=== PATIENT | male | born 1940 | race Caucasian/White ===

== ENCOUNTER → 2025-03-02 07:49 | Outpatient (REF) | payer OTHER, SELFPAY | LOC: RCS 07:49 | PROVIDERS: ATTENDING PHYSICIAN Student in an Organized Health Care Education/Training Program; FAMILY PHYSICIAN Internal Medicine | DX: I35.0 Nonrheumatic aortic (valve) stenosis (principal) | CPT/HCPCS: 74174; 75572; 93306; Q9967 ==

== ENCOUNTER 2025-05-14 07:21 | Inpatient (IN) | payer OTHER, SELFPAY ==
[2025-05-05 09:25] VITALS: BMI 31.9
[2025-05-05 10:14] LABS: Urine Character Clear (Clear)
[2025-05-05 10:14] LABS: Hematocrit 50.2 % (39.0-52.0); Hemoglobin 17.2 g/dL (13.0-18.0); Mean Corp Hgb Conc. 34.3 g/dL (33.0-37.0); Mean Corpuscular Volume 87.3 fL (80.0-94.0); Nucleated Red Blood Cells % 0 % (-); Platelet Count 143 10^3/uL (130-400); Red Cell Dist. Width 14.2 % (11.5-14.5)
[2025-05-05 10:25] LABS: INR 1.02; PT 13.7 Sec (11.4-14.6)
[2025-05-05 10:33] LABS: ALT (SGPT) 43 U/L (0-50); AST (SGOT) 36 U/L (17-59); Albumin 4.7 g/dl (3.5-5.0); Alkaline Phosphatase 60 U/L (38-126); Blood Urea Nitrogen 11 mg/dl (9-20); Calcium 9.3 mg/dl (8.4-10.2); Carbon Dioxide 28 mmol/L (22-30); Chloride 104 mmol/L (98-107); Estimated Creatinine Clearance 51 ml/min; Glucose 99 mg/dl (70-99); Potassium 4.9 mmol/L (3.5-5.1); Sodium 140 mmol/L (135-145); Total Protein 7.5 g/dl (6.3-8.2); eGFR > 60.00
--- NOTE | 2025-05-05 10:52 | CM ---
Chart reviewed. Met with the patient and his in [facility]. Reviewed preoperative and postoperative instructions and restrictions, along with showering guidelines. Gave patient 2 soaps and TAVR Book. Patient is outside the driving radius of [place]
Transitional RN, so he will either need VN or a follow up phone call. Patient is independent of ADLS, lives with his in a [facility], total of 8 MELANI, 0 DME. Patient is staying at the [facility] in [place] the night before and will stay until
Sunday, May 16. Plan is for the patient to return home with VN or follow up phone call.
[2025-05-05 10:53] LABS: Glycohemoglobin (HgbA1c) 5.7 % (4.0-5.6)
--- NOTE | 2025-05-05 14:13 | HPS.HSE ---
Family Physician
-
Family Physician: Cr Luo
Cardiology: Dr. Boateng
Chief Complaint
-
Pre-operative history and physical
History of Present Illness
Mr. Fishman is a very pleasant 84 yo gentleman with a past medical history significant for aortic stenosis, HLD, CAD, HTN, RBBB, and MT. His most recent echocardiogram from 03/02/2025 is notable for EF 55-60%, aortic valve P/ M 51/29, SUSAN 0.7, Pk
joselito. 3.57, mild AI, MAC, mild MS, trace MR, trace TR. Cardiac catheterization from 01/02/2025 demonstrated moderate non-obstructive CAD with an invasive MG of 30. From a symptomatology standpoint, patient describes LILLY. Reviewed the pathophysiolgy and
treatment options of including SAVR and TAVR. Reviewed the risks of the procedure including Stroke, ppm, and vascular injury. Reviewed patient with the heart team on 04/03/2025 and the team agreed to proceed with TF TAVR utilizing a 26mm S3.
Medical History
Past Medical History
Past Medical History: Reports CAD, GERD, HTN and Hypercholesterolemia
Additional Past Medical History:
Elevated liver enzymes, RBBB (right bundle branch block),R inguinal hernia, SAVOONGA (no aides), Cataracts, s/p sx, Skin cancer on head, s/p removal
Past Surgical History: Reports Other (PCI RCA, hernia repair, Right THR, Mohs-forehead)
Social History
Tobacco: Former Smoker
Alcohol: Occasional
Drug: None
Personal:
Living: With Family
Family History
Family History: CAD (Father had MT in 50s)
Allergies / Home Medications
Allergies reflects when Allergies were last updated in [employer].
Home Medications with original date entered in [employer]
Allergy/Medication List:
Allergies:
NKDA
Medications:
Aspirin 81(Aspirin) 81 MG Tablet Chewable 1 tablet Orally Once a day
Crestor(Rosuvastatin Calcium) 5 MG Tablet 1 tablet Orally Once a day
Icosapent Ethyl 1 GM Capsule 1 capsule Orally Twice a day
Losartan Potassium 25 MG Tablet 1 tablet Orally Once a day
Metoprolol Tartrate 50 MG Tablet 1 tablet with food Orally Twice a day
Multivitamin Adults(Multiple Vitamins-Minerals) - Tablet as directed Orally
Pantoprazole Sodium 40 MG Tablet Delayed Release 1 tablet Orally Once a day
Review of Systems
-
History Source: Patient
Constitutional: Reports No Symptoms
EENT: Reports No Symptoms
Respiratory: Reports Other (LILLY)
Cardiac: Reports Other (LILLY); Denies Palpitations or Syncope
Abdomen/GI: Reports No Symptoms; Denies Abdominal Pain, Nausea or Vomiting
: Reports No Symptoms; Denies Dysuria or Frequency
Musculoskeletal: Reports No Symptoms; Denies Edema
Skin: Reports No Symptoms
Neurological: Reports No Symptoms; Denies Dizzy, Headache or Weakness
Endocrine: Reports No Symptoms
Hematologic/Lymphatic: Reports No Symptoms
Psych: Reports No Symptoms and Calm
Physical Exam
Physical Exam
General: Well Developed, Well Nourished and No Apparent Distress
HEENT: NormoCephalic, Moist mucous membranes and PERRLA
Respiratory: Clear and Non Labored Respirations; No Wheezes, Rales or Rhonchi
Cardiac: S1/S2, Regular Rhythm and Murmur (Grade II/ DALLIN); No Peripheral Edema
Breast: Deferred by me
GI: Soft, Non Tender, Non Distended and Normal Bowel Sounds
Rectal: Deferred by Provider
Genito-urinary: Deferred by me
Musculoskeletal: No Edema
Skin: Warm and Dry
Neuro: AO x 3, No Motor Deficits and Nonfocal/grossly intact
Psych: Calm and Intact Judgment/Insight
Laboratory Results
-
05/05/25 09:34
05/05/25 09:34
Laboratory Results
PT 13.7 Sec (11.4-14.6) 05/05/25 09:34
INR 1.02 05/05/25 09:34
Total Bilirubin 1.4 mg/dl (0.2-1.3) H 05/05/25 09:34
AST 36 U/L (17-59) 05/05/25 09:34
ALT 43 U/L (0-50) 05/05/25 09:34
Alkaline Phosphatase 60 U/L (38-126) 05/05/25 09:34
Data Reviewed
-
Diagnostic Radiology: Report Reviewed by me
CT Scan: Report Reviewed by me and Discussed with Physician
Medical Tests (Nuc Med, Echo, EKG etc): Report Reviewed by me (EKG-RBBB)
Lab Data: Labs Reviewed by me
Old Records: Reviewed (Consult notes)
Impression/Plan
-
IMPRESSION:
Severe, Symptomatic aortic stenosis
PLAN:
-TF-TAVR utilizing a 26mm S3 valve via transfemoral access
-Continue aspirin 81mg daily
-Cardiac rehab consult
-POD #1/#30 echocardiogram
[2025-05-14] VITALS (28 sets, daily range): BP systolic 85–143; BP diastolic 56–93; BMI 31.4
--- NOTE | 2025-05-14 08:54 | W.CVOR.SURPR ---
CVOR Surgeon Immed Pre Op
-
I have examined this patient prior to performance of the scheduled procedure.
The patient's condition is unchanged from the time of the dictated/written History and
Physical and the patient is able to undergo the scheduled procedure.
[2025-05-14] MEDS: ANCEF 10 IV (09:28)
[2025-05-14 11:04] LABS: ACT-LR - POC 392 Seconds (116-155)
--- NOTE | 2025-05-14 11:19 | W.IMMPOSTOP ---
Surgical Immed Post Op Note
-
[id number]
STRUCTURAL HEART PROCEDURE NOTE: TAVR
Preoperative Dx:
Moderate to severe aortic stenosis with peak/mean gradients of 51/29, calculated SUSAN 0.7, peak velocity 3.57. Mild associated aortic insufficiency.
CAD status post prior PCI/stenting to his RCA
Prior myocardial infarction
RBBB
Hypertension
Hyperlipidemia
GERD
Cataracts status post surgery
Skin cancer on head status post Mohs
Right hip replacement
Hard of hearing
Hernia repair
Postoperative Dx:
Same
Procedures:
1) Left CFV access with ultrasound and fluoroscopic guidance, Seldinger technique,, long 6 [place] sheath placement
2) Left USED CAR LOT PORTER access with tactile, ultrasound, and fluoroscopic guidance, Seldinger technique, micropuncture sheath placement, limited angiography, long 6 [place] sheath placement
3) Placement of temporary RV pacing wire with threshold testing
4) Placement of pigtail catheter in the RCC with limited aortography and confirmation of coplanar valve deployment angles, minor adjustments
5) Right USED CAR LOT PORTER access with tactile, ultrasound, and fluoroscopic guidance, Seldinger technique, micropuncture sheath placement, limited angiography, 8 [place] dilator placement
6) Perclose placement x 2, 8 [place] sheath placement (first Perclose attempted failed and was not deployed)
7) Extra-stiff wire placement through right iliofemoral system
8) Placement of Bonds E sheath via R USED CAR LOT PORTER (systemic heparinization)
9) Wire purchase across stenotic aortic valve (AL-1, soft-tipped straight, LVEDP assessment (not significantly elevated, 22 mmHg), extra-stiff wire with curve proximal end)
10) Right transfemoral TAVR with placement of 26 mm ROSY 3 Resilia valve
11) Completion aortography
12) Completion transthoracic echocardiographic assessment (mean gradient 4 mmHg, no AI or PVL)
13) Removal of valve delivery system and Bonds E-sheath from right USED CAR LOT PORTER, management with Perclose sutures x 2; manual pressure
14) Completion right iliofemoral angiography
15) Removal of temporary pacing wire
16) Removal of left USED CAR LOT PORTER 6 [place] sheath with management with 6 [place] Angio-Seal; manual pressure
17) Removal of left CFV 6 [place] sheath with management with manual pressure
Employment Educational Coord:
Dr. Ciro Kumar
Cardiac Surgeon:
Dr. Alin Maldonado
Anesthesia:
MAC & local to B/L groins
Implants:
Bonds [employer], ROSY 3, 26mm, RESILIA valve; SN: [id number]
Perclose sutures x 2 (R USED CAR LOT PORTER)
6Fr angioseal x 1 (L USED CAR LOT PORTER)
Cath Data:
Start: 1009hrs, Deploy: 1055hrs, End: 1112hrs
FT: 9.6min, mGy: 266, DAP: 26.1, Contrast: 120
Post-TTE: mean gradient 4mmHg, no AI/PVL
Complications:
No significant complications, patient with blood pressure variability including hypertension and very mild hypotension while under MAC anesthesia
Condition:
Stable/guarded to recovery
--- NOTE | 2025-05-14 11:25 | ITS.CL.PN ---
P[facility] - Procedure Note
Procedure
Procedure Note:
TRANSCATHETER AORTIC VALVE REPLACEMENT REPORT
Date of Procedure: 05/14/2025
Referring: Pilar Smart NP
Indication: symptomatic severe aortic valve stenosis
Operators: Ciro Kumar MD, PhD (interventional cardiology); Dr. Alin Maldonado MD (CT surgery)
Anesthesia: conscious sedation provided by the anesthesia staff
PROCEDURE: transfemoral, transcatheter aortic valve replacement with an Bonds Nadeem 3 Ultra RESILIA 26 mm transcatheter aortic valve
ACCESS:
1. 6F left femoral vein (closure: manual hemostasis) - Ultrasound was utilized for vascular access. The vessel was visualized under ultrasound and noted to be patent. An image of the vessel was stored permanently in the patient's medical record.
Under direct ultrasound guidance, vascular access was obtained using a modified Seldinger technique and a 6 [place] sheath was placed.
2. 6F left common femoral artery (closure: Angioseal) - Ultrasound was utilized for vascular access. The vessel was visualized under ultrasound and noted to be patent. An image of the vessel was stored permanently in the patient's medical record.
Under direct ultrasound guidance, vascular access was obtained using a modified Seldinger technique and a 6 [place] sheath was placed.
3. 14 F right common femoral artery (closure: Perclose x2) - Ultrasound was utilized for vascular access. The vessel was visualized under ultrasound and noted to be patent. An image of the vessel was stored permanently in the patient's medical
record. Under direct ultrasound guidance, vascular access was obtained using a modified Seldinger technique and a 8 [place] sheath was placed.
HEMODYNAMIC DATA
LVEDP 22 mmHg
PROCEDURE NARRATIVE:
The patient was prepped and draped in standard sterile fashion. Conscious sedation was provided by the anesthesia staff. 6F left femoral vein and left common femoral artery access was obtained with ultrasound guidance using micropuncture technique
with verification of appropriate arteriotomy location via hand injection angiography. A temporary venous pacing wire was advanced via the left femoral vein to the right ventricle under fluoroscopic guidance with appropriate capture verified. A 5F
pigtail catheter was advanced via the left common femoral artery and seated in the right coronary cusp. Angiography was performed to verify the co-planar angle.
8F right common femoral artery access was obtained with ultrasound guidance using micropuncture technique with verification of appropriate arteriotomy location via hand injection angiography. The arteriotomy was preclosed with two Perclose sutures
followed by replacement of the 8F sheath. Using an AL1 catheter, an Amplatz Extrastiff wire was placed in the descending thoracic aorta. The 8F sheath was removed and the 14 F Bonds E-sheath was inserted over the Extrastiff wire and into the
descending aorta. Heparin was given. The AL1 catheter was re-advanced through the E-sheath to the level of the ascending aorta. The Extrastiff wire was exchanged for a soft tipped straight wire which was used to cross the aortic valve and deposit
the AL1 in the LV apex. A J-wire was used to exchange the AL1 for a pigtail catheter in the LV and LVEDP was measured. An Amplatz Extrastiff wire with curved proximal end was advanced through the pigtail catheter and seated in the LV apex. ACT was
checked and confirmed to be >300 seconds.
The valve was brought to the table with orientation and deployment contrast volume verified. The valve was advanced over the Extrastiff wire and into the descending aorta. The balloon was withdrawn, and the valve was mounted on the balloon. The
valve was advanced over the aortic arch and into the aortic valve annulus. The pusher device was withdrawn. Low volume aortography confirmed valve positioning. The valve was deployed during rapid ventricular pacing. The balloon was walked back to
the descending aorta while leaving the wire in place. The patient was resuscitated by anesthesia with recovery of adequate blood pressure. Telemetry demonstrating sinus rhythm. Aortography demonstrated good valve positioning, adequate coronary
filling, and no aortic valve insufficiency. Echocardiography confirmed no aortic insufficiency. Mean valve gradient was 4 mmHg. The valve deployment system was removed.
The Bonds E sheath was removed, and hemostasis obtained with the two Perclose sutures. Protamine 30 mg was given. Aortoiliac angiography demonstrated no evidence of iliofemoral dissection/perforation and good runoff below the common femoral artery
bilaterally. The pacemaker and the pigtail catheter were removed. The left femoral artery sheath was removed using a 6F Angioseal. The left femoral venous sheath was removed with manual pressure.
RADIATION: dose 266 mGy; DAP 26.1 Gy*cm2; fluoroscopy time 9.6 min
CONCLUSION: successful placement of an Bonds Nadeem 3 Ultra RESILIA 26 mm transcatheter aortic valve via right transfemoral approach with no acute complications
Copy to: Pilar Smart NP; Jadon Ramirez MD; Robbin Pierre MD (food and beverage checker); Cr Luo MD (PCP)
Signed: Ciro Kumar MD, PhD
[2025-05-14] MEDS: ANCEF IV (12:26)
--- NOTE | 2025-05-14 12:55 | PTCARENOTE ---
Patient received from the lab specialist. AO x3. NSR hr 80's. B/L femoral sites CDI, Doppler pulses b/l. Left DP weaker than the right. Petechiae rash on lower legs and anterior feet, skin warm to touch, VSS, call garcia in reach
--- NOTE | 2025-05-14 13:20 | CM ---
Reviewed chart. Mr. Fishman is in the operating room today. Prior to admission he resides his spouse in a two story home with eight steps to enter. Prior to admission he was independent with ambulation and adls. He is out of the catchment area for
the Transitional Care Nurse. May need VNA Services. Medical work-up in progress. The discharge plan is to return home with his spouse and VNA Services when medically stable.
[2025-05-14] MEDS: ANCEF 5 IV (16:38)
--- NOTE | 2025-05-14 17:32 | PTCARENOTE ---
Patient out of bed in chair, assisted to the bathroom to void. Call garcia in reach
[2025-05-14] MEDS: PROTONIX 40 MG PO (18:00)
[2025-05-14] MEDS: COZAAR 25 MG PO (18:00)
[2025-05-14] MEDS: CRESTOR 5 MG PO (21:06)
[2025-05-14] MEDS: ASPIR LOW (ENTERIC COATED) 81 MG PO (21:06)
--- NOTE | 2025-05-14 22:17 | PTCARENOTE ---
Patient received at change of shift out of bed to the chair. Bilateral groin punctures with gauze and tegaderm C/D/I. Bilateral pedal pulses obtainable with doppler, left weaker than right. The patient denies pain, denies feeling lightheaded or
dizzy. The patient states he feels well and is ready to be home. Sinus rhythm on telemetry. Oxygen saturation 93-94% on room air. Plan of care discussed. Call garcia within reach. Care ongoing.
[2025-05-15 03:31] VITALS: BP 124/70
[2025-05-15 03:41] VITALS: BMI 31.9
[2025-05-15 04:47] LABS: Blood Urea Nitrogen 15 mg/dl (9-20); Calcium 8.8 mg/dl (8.4-10.2); Carbon Dioxide 21 mmol/L (22-30); Chloride 107 mmol/L (98-107); Estimated Creatinine Clearance 64 ml/min; Glucose 129 mg/dl (70-99); Potassium 4.3 mmol/L (3.5-5.1); Sodium 136 mmol/L (135-145); eGFR > 60.00
[2025-05-15 04:52] LABS: Hematocrit 45.0 % (39.0-52.0); Hemoglobin 15.5 g/dL (13.0-18.0); Mean Corp Hgb Conc. 34.4 g/dL (33.0-37.0); Mean Corpuscular Volume 85.7 fL (80.0-94.0); Platelet Count 114 10^3/uL (130-400); Red Cell Dist. Width 14.3 % (11.5-14.5)
[2025-05-15] MEDS: COZAAR 25 MG PO (08:03)
[2025-05-15 08:06] VITALS: BP 139/73
--- NOTE | 2025-05-15 08:14 | W.PN.CT ---
Today's Communication / Plan
-
-pod #1
-no issues overnight
-nsr overnight. No jenny or pause. Episode on tele at 1:13 am is likely artifact
-Echo today
-possible d/c
Assessment / Plan
-
- Severe symptomatic - s/p Right transfemoral TAVR with placement of 26 mm ROSY 3 Resilia valve on 05/14/25, pod #1
- Post-TTE: mean gradient 4mmHg, no AI/PVL
- CAD status post prior PCI/stenting to his RCA
- Prior myocardial infarction
- RBBB
- Hypertension
- Hyperlipidemia
- GERD
- Cataracts status post surgery
- Skin cancer on head status post Mohs
- Right hip replacement
- Hard of hearing
- Hernia repair
Discussed patient care with: Nursing and Care Team
Subjective
-
Date of Service: May 15, 2025
Objective Data
-
Lab Results
05/15/25 03:40
05/15/25 03:40
PT 13.7 Sec (11.4-14.6) 05/05/25 09:34
INR 1.02 05/05/25 09:34
Vital Signs
Vital Signs
Temp Pulse Resp BP Pulse Ox
98.5 F 91 20 139/73 96
05/15/25 08:06 05/15/25 08:06 05/15/25 08:06 05/15/25 08:06 05/15/25 08:06
CT Intake/Output/Weight
05/14/25 05/15/25 05/15/25
18:59 06:59 18:59
Intake Total 2079 / 0
Output Total 650 / 750 100 / 750
Balance 1430 / 1330 -100 / 1330
SaO2: 96
Physical Exam
-
General: Awake and AOx3
Cardiovascular: Regular rate & rhythm, No Murmurs and No Rub
Respiratory: Clear
Incision: Clean, Dry and Intact (soft, nontender, no hematoma b/l)
Extremities: No Edema
Data Reviewed
-
Lab Results: Results Reviewed
Medications: Active Meds Reviewed
Chest X-Ray: Report Reviewed and Image Reviewed
ECG: Report Reviewed and Image Reviewed
[2025-05-15] MEDS: LOPRESSOR 50 MG PO (09:45)
[2025-05-15 09:47] VITALS: BP 122/66
--- NOTE | 2025-05-15 09:53 | W.DCSUMMARY ---
Addendum entered and electronically signed by Soni Quintanilla PA-C 05/18/25 12:37:
Error in hospital course. Pt did not receive IV lasix. LVEDP measured in microbiology lab technician was 22mmHg.
Original Note:
Discharge Summary
Discharge Data
Date of Admission: 05/14/25
Date of Discharge: 05/15/25
-
Pending Results: No
Hospital Course
Primary care physician: Cr Luo
Outpatient csr: Connor Boateng
Inpatient consultants: ERICA
Procedures:
1. 05/14/25 Right transfemoral TAVR with placement of 26 mm ROSY 3 Resilia valve by Drs. Maldonado & José
Primary Diagnosis:
1. severe aortic stenosis
Secondary Diagnoses:
1. coronary artery disease s/p PCI/stenting to his RCA
2. hx [place]
3. chronic RBBB
4. hypertension
5. hyperlipidemia
6. GERD
7. hx cataract surgery
8. hx skin cancer s/p MOHS
9. osteoarthritis s/p right SUZANNA
10. hard of hearing
11. hx hernia repair
HPI: Patient is an 84-year-old male with known progressive aortic stenosis, most recent echo demonstrated preserved ejection fraction with a peak and mean gradients of 51/29mmhg. Cardiac cath demonstrated nonobstructive coronary disease and he was
therefore referred for TAVR. After all preoperative workup was completed he was deemed a suitable candidate undergo the procedure.
Hospital course: Patient was brought in electively on 05/14/2025 where he underwent an uncomplicated right transfemoral TAVR with a 26 mm ROSY 3 Resilia by Drs. Maldonado and Roque. He was transferred to recovery without any vasoactive drips, postop
EKG demonstrated normal sinus rhythm with chronic right bundle branch block and left anterior fascicular block. He was given IV Lasix for acute on chronic heart failure with elevated LVEDP. He remained stable overnight on postop day 1 patient's
EKG remained unchanged. Groin sites are stable, he is ambulatory. Home beta-melani was resumed and tolerated well. Follow-up echo demonstrated well-seated TAVR with no significant regurgitation, mean gradient of 9 mmHg. Patient was placed on a
rhythm star monitor to be worn for the next 2 weeks to monitor his rhythm. He is discharged to home in the care of his family with VN from [facility].
Home medication changes: none, resume all home meds.
Discharge Plan
-
Patient Disposition: Home (Routine Discharge)
Discharge Diagnosis/Procedures: TF TAVR (05/14/25)
Condition: Good
Diet: Low Cholesterol and 2 Gram Sodium
Activity: As tolerated
Driving Restrictions: No driving for 1 week
Bathing Restrictions: OK to Shower
Others Tests: 30 Day Follow Up Echocardiogram: 06/16/2025 at 12:40pm at Dr. Boateng's office
Other Services: Cardiac Rehab
Wound Care: Please do not use powders, creams or lotions in your groin areas. Monitor for increased pain, swelling, redness or drainage. Please notify your doctor if any occur.
Specialty Instructions: Weigh Daily- Call MD for wt gain/loss 3 lbs overnight/5 lbs in 1 week
Activity Restrictions/Additional Instructions:
Please call [facility] to schedule appointment. [phone]
Referrals:
[facility] [Outside] - in one to two days
Cr Luo MD [Family Provider] - in four to six weeks
Referral Note: Please make an appointment in four to six weeks.
Sandip Pierre MD [Active, Cardiology] - 06/18/25 9:40 am
Prescriptions:
New
acetaminophen 325 mg Tablet
650 mg PO Q6HPRN PRN (Reason: HORNER, mild pain, or fever >101F) Qty: 0 0RF
Continued
multivitamin Tablet
1 tab PO DAILY
aspirin 81 mg Tablet,Delayed Release (Dr/Ec)
81 mg PO HS
pantoprazole 40 mg Tablet,Delayed Release (Dr/Ec)
40 mg PO QPM
losartan 25 mg Tablet
25 mg PO DAILY
metoprolol tartrate 50 mg Tablet
50 mg PO BID
rosuvastatin 5 mg Tablet
5 mg PO HS
icosapent ethyl 1 gram Capsule
1 g PO BID
Discharge Orders:
Discharge Patient (As Directed); Ordered 05/15/25
Ordered By: Soni Quintanilla
Care Plan Goals
Care Plan Goals:
Problem: Readiness for enhanced knowledge related to diagnosis and treatment plan
Goal: Understand your diagnosis and treatment plan needs, including medications if applicable.
Instructions: Know your diagnosis, underlying causes and treatment plan options, including medications if applicable. Consult with your health care team to learn about your diagnosis and treatment plan, including medications if applicable.
Discharge Date and Time
Print Language: FINNISH
--- NOTE | 2025-05-15 09:54 | CM ---
Reviewed chart. Met with Mr. Fishman to review discharge plans. He states he feels well and maybe able to go home soon. He states prior to admission he resides with his spouse in a two story home with seven steps to enter. He states he has a full
flight of steps to get to bedroom/full bathroom. He states he has a powder room in the basement. He states prior to admission he was independent with ambulation and adls. He states he does not have ant DME in the home. He states he has a
prescription plan with [facility]. He states his spouse will be home to assist in his care if needed. We reviewed VNA Services since he is out of the catchment area for the Transitional Care Nurse. He is agreeable to [facility].
Telephone call to [facility] to make the referral. Sent referral. Medical work-up in progress. The discharge plan is to return home with his spouse [facility] when medically stable.
--- NOTE | 2025-05-15 10:36 | PTCARENOTE ---
Assumed care at 0700. Patient AO x3. NSR HR 80's, trace lower extremity edema, petechia rash lowers legs and anterior feet. Doppler pulses, feet warm to touch. B/L femoral sites soft, dressing dry and intact. Mildly short of breath with activity,
occasional audible wheeze, POX 97%. Walking in room, gait is steady. Call garcia in reach
[2025-05-15 10:52] VITALS: BP 142/80; BP 144/77; PULSE 76; O2SAT 96; O2SAT 97
[2025-05-15 11:02] VITALS: BP 142/80
[2025-05-15 11:06] VITALS: BP 144/77
--- NOTE | 2025-05-15 13:24 | PTCARENOTE ---
Patient discharged to home. Teaching provided, patient verbalized understanding. IV and Telemetry removed. Rythymn star monitor placed on patient
--- NOTE | 2025-05-15 20:21 | W.PN.CD ---
Today's Communication / Plan
-
discharge
Impression / Plan
-
84M with severe symptomatic aortic valve stenosis POD1 s/p TF TAVR with Bonds S3UR 26 mm valve.
Overnight did well
Feels well with ambulation
Groin soft
VSS
Tele with possible brief pause, will send with 2 week monitor given high risk for heart block with underlying RBBB
EKG stable RBBB
Labs stable
Echo with stable valve function, gradient:
1. Normal biventricular size and function without regional wall motion abnormalities.
2. LVEF is 61% by Decker's biplane method of discs. Mild concentric LVH.
3. S/p 26 mm Bonds ROSY TAVR valve. Mean gradient 9 mmHg. No significant regurgitation.
4. Mild mitral stenosis mean gradient 5 mmHg.
5. Normal estimated PASP at 28 mmHg.
6. Compared to prior from March 02, 2025, status post TAVR valve.
Plan:
discharge per protocol on ASA daily
1 month follow up echo
cardiology follow up
Physical Exam
Vital Signs/Labs
Vital Signs
Temp Pulse Resp BP Pulse Ox
36.9 C 68 18 144/77 94
05/15/25 11:47 05/15/25 12:00 05/15/25 11:47 05/15/25 11:06 05/15/25 11:47
05/14/25 05/15/25 05/16/25
06:59 06:59 06:59
Actual Weight 82.8 kg
05/15/25 03:40
05/15/25 03:40
PT 13.7 Sec (11.4-14.6) 05/05/25 09:34
INR 1.02 05/05/25 09:34
05/05/25
09:34
[id number] Pept 698
Physical Exam
Constitutional: Comfortable
Cardiovascular: Rhythm & rate is regular
Respiratory: Respiratory effort normal
Neuro/Psych: AO x 3
Data Reviewed
-
Date of Service: May 15, 2025
Medical Decision Making: Reviewed Test Results
EKG: Tracing Personally Visualized and interpreted
Medical Tests (PFT, Pathology etc): Image Personally Visualized and interpreted
Labs: Labs Ordered by me
--- NOTE | 2025-05-18 09:28 | PN.CDI ---
CDI
- -
CDI:
Physician Documentation Request
Admit Date: 05/14/25 07:21
Dear Doctor Joel,
Please review the following and provide your response in the progress notes.
Clinical Indicators:
The Discharge Summary states the patient was given IV Lasix for acute on chronic heart failure with elevated LVEDP.
Please provide further specificity regarding the most likely type of CHF you are evaluating, treating or monitoring.
Type:
Systolic
Diastolic
Combined Systolic/Diastolic
Other
Unable to Determine
Use of terms such as suspected, likely, concern for, or probable (associated with a specific diagnosis that is being evaluated, monitored, or treated as if it exists) are acceptable and can be coded in the inpatient setting, when documented at the
time of discharge.
Thank you,
Leslie Swain
Chisel Worker
Please use your independent medical judgment in providing your response.
== END 2025-05-15 14:17 | disposition home health service (06) | DRG 267 ==
LOC: IVU 07:21
PROVIDERS: Physician Assistant Medical; ADMITTING PHYSICIAN Thoracic Surgery (Cardiothoracic Vascular Surgery); CONSULT PHYSICIAN Student in an Organized Health Care Education/Training Program; FAMILY PHYSICIAN Internal Medicine
PROC: 02RF38Z Replacement of Aortic Valve with Zooplastic Tissue, Percutaneous Approach (ICD-10-PCS; 2025-05-14)
DX: I35.2 Nonrheumatic aortic (valve) stenosis with insufficiency (principal); I45.2 Bifascicular block; I25.10 Atherosclerotic heart disease of native coronary artery without angina pectoris; I10 Essential (primary) hypertension; E78.00 Pure hypercholesterolemia, unspecified; K21.9 Gastro-esophageal reflux disease without esophagitis; H91.90 Unspecified hearing loss, unspecified ear; I25.2 Old myocardial infarction; Z85.828 Personal history of other malignant neoplasm of skin
CPT/HCPCS: 33361; 36415; 71045; 71046; 80048; 80053; 81003; 82248; 83036; 83880; 85025; 85027; 85347; 85610; 86850; 86900; 86901; 87070; 93005; 93308; 93321; 93325; C1760; C1769; Q9967

== ENCOUNTER 2025-05-16 13:24 | Inpatient (IN) | payer OTHER, SELFPAY ==
[2025-05-16] VITALS (36 sets, daily range): BP systolic 117–163; BP diastolic 59–91; BMI 29.6
--- NOTE | 2025-05-16 13:06 | ED.GENMED ---
History of Present Illness
<Nusrat Burkett PA-C - Last Filed: 05/16/25 16:30>
General
Chief Complaint: Heart Rate Problem
Source: patient
Exam Limitations: none
Time Seen by Provider: 05/16/25 12:42
Nursing documentation reviewed up to this point in time: agreed with
History of Present Illness
History of Present Illness:
see MDM
Past History
<WARNER Jean Baptiste Last Filed: 05/16/25 16:30>
Past History
ED Past Medical History: CAD, GERD, HTN, Hypercholesterolemia and Other (aortic stenosis)
ED Past Surgical History: Cardiac and Orthopedic
Review of Systems
<WARNER Jean Baptiste Last Filed: 05/16/25 16:30>
Review of Systems
Allergies reviewed?: Yes
All Other Systems: Not applicable
Phy Exam
<WARNER Jean Baptiste Last Filed: 05/16/25 16:30>
Physical Exam
Physical Exam:
GENERAL: Alert , in no apparent distress
EYE: pupils equal and reactive
NECK: Supple
ENT: o/p clr, mmm.
CARDIAC: sinus, no edema;
LUNGS: Clear breath sounds bilaterally, no acute respiratory distress, no wheezes/rales/rhonchi
ABDOMEN: Soft, without focal tenderness, no r/g, no cvat, normal bowel sounds
NEUROLOGICAL: Alert and oriented, no focal neuro deficits
SKIN: Warm and dry, skin intact.some mil dpetechiae in the B/L lower extremities
MUSCULOSKELETAL: No edema, well perfused. neg keon's sign
PSYCH: Normal and appropriate interaction.
Course
<WARNER Jean Baptiste Last Filed: 05/16/25 16:30>
Orders/Labs/Results
Orders:
Orders
05/16/25 12:28
ECG [Electrocardiogram (*1)] Urgent
Reason for Study: Abnormal EKG
EKG- Treatment ONCE
05/16/25 13:04
Complete Blood Count/With Diff Urgent
Comprehensive Metabolic Panel Urgent
Magnesium Urgent
PTT Urgent
Prothrombin Time Urgent
TSH Urgent
Troponin I Urgent
05/16/25 13:14
Admit/Transfer Patient As Directed
Co-Sign Provider:
Level of Care: Inpatient admission
Assign to:: IVU
Physician / Group: eldon
Diagnosis: heart block
Reason for Hospitalization: heart block
Expected length of stay greater than two midnights?: Yes
ELOS- Estimated Length of Stay in days: 3
I certify the patient meets the requirements for IP care: Yes
05/16/25 13:15
Code Status As Directed
Resuscitation Status: Full Code
PRN Pain Medication Management As Directed
May give lesser potent ordered pain med per pt: Yes
preference::
Protocol:: Medication orders for pain may be administered in a
manner that supports deferring to patient preference
when the pt is:
- Requesting an ordered lesser potent pain medication.
Least to most potent pain medications are defined
as: acetaminophen < NSAID < tramadol < opioids
(morphine, oxycodone, hydromorphone).
- Requesting a lesser dose of the same medication IF
ORDERED.
- Requesting a less intrusive route of administration
if both routes are prescribed by the provider (PO <
IV).
Abnormal Lab Results
05/16/25
13:04
WBC 11.8 H 10^3/uL
(4.8-10.8)
RDW 14.6 H %
(11.5-14.5)
Plt Count 86 L D 10^3/uL
(130-400)
MPV 11.1 H fL
(7.4-10.4)
Abs Immat Gran (auto) 0.1 H 10^3/uL
(0-0.05)
Absolute Neuts (auto) 8.5 H 10^3/uL
(1.4-6.5)
Absolute Monos (auto) 1.3 H 10^3/uL
(0.1-0.6)
Lymphocytes % 13.8 L %
(20.5-51.1)
Monocytes % 11.2 H %
(1.7-9.3)
Total Bilirubin 1.6 H mg/dl
(0.2-1.3)
Troponin I 0.097 H* ng/ml
TSH 4.73 H uIU/ml
(0.47-4.68)
05/16/25 13:04
05/16/25 13:04
Vital Signs
Initial and Last Documented VS:
Initial Vital Signs
Temp Pulse Resp BP Pulse Ox
36.8 C 68 16 160/84 98
05/16/25 12:28 05/16/25 12:28 05/16/25 12:28 05/16/25 12:28 05/16/25 12:28
Last Documented Vital Signs
Temp Pulse Resp BP Pulse Ox
36.8 C 67 17 118/70 95
05/16/25 12:28 05/16/25 16:20 05/16/25 16:20 05/16/25 16:20 05/16/25 16:20
Yuridialt;Srini Umana DO - Last Filed: 05/16/25 13:07>
Orders/Labs/Results
Orders:
Orders
05/16/25 12:28
ECG [Electrocardiogram (*1)] Urgent
Reason for Study: Abnormal EKG
EKG- Treatment ONCE
05/16/25 13:04
Complete Blood Count/With Diff Urgent
Comprehensive Metabolic Panel Urgent
Magnesium Urgent
PTT Urgent
Prothrombin Time Urgent
TSH Urgent
Troponin I Urgent
05/16/25 13:14
Admit/Transfer Patient As Directed
Co-Sign Provider:
Level of Care: Inpatient admission
Assign to:: IVU
Physician / Group: eldon
Diagnosis: heart block
Reason for Hospitalization: heart block
Expected length of stay greater than two midnights?: Yes
ELOS- Estimated Length of Stay in days: 3
I certify the patient meets the requirements for IP care: Yes
05/16/25 13:15
Code Status As Directed
Resuscitation Status: Full Code
PRN Pain Medication Management As Directed
May give lesser potent ordered pain med per pt: Yes
preference::
Protocol:: Medication orders for pain may be administered in a
manner that supports deferring to patient preference
when the pt is:
- Requesting an ordered lesser potent pain medication.
Least to most potent pain medications are defined
as: acetaminophen < NSAID < tramadol < opioids
(morphine, oxycodone, hydromorphone).
- Requesting a lesser dose of the same medication IF
ORDERED.
- Requesting a less intrusive route of administration
if both routes are prescribed by the provider (PO <
IV).
Abnormal Lab Results
05/16/25
13:04
WBC 11.8 H 10^3/uL
(4.8-10.8)
RDW 14.6 H %
(11.5-14.5)
Plt Count 86 L D 10^3/uL
(130-400)
MPV 11.1 H fL
(7.4-10.4)
Abs Immat Gran (auto) 0.1 H 10^3/uL
(0-0.05)
Absolute Neuts (auto) 8.5 H 10^3/uL
(1.4-6.5)
Absolute Monos (auto) 1.3 H 10^3/uL
(0.1-0.6)
Lymphocytes % 13.8 L %
(20.5-51.1)
Monocytes % 11.2 H %
(1.7-9.3)
Total Bilirubin 1.6 H mg/dl
(0.2-1.3)
Troponin I 0.097 H* ng/ml
TSH 4.73 H uIU/ml
(0.47-4.68)
05/16/25 13:04
05/16/25 13:04
Vital Signs
Initial and Last Documented VS:
Initial Vital Signs
Temp Pulse Resp BP Pulse Ox
36.8 C 68 16 160/84 98
05/16/25 12:28 05/16/25 12:28 05/16/25 12:28 05/16/25 12:28 05/16/25 12:28
Last Documented Vital Signs
Temp Pulse Resp BP Pulse Ox
36.8 C 67 17 118/70 95
05/16/25 12:28 05/16/25 16:20 05/16/25 16:20 05/16/25 16:20 05/16/25 16:20
<Nusrat Burkett PA-C - Last Filed: 05/16/25 16:30>
MDM/Problems Addressed
Differential Diagnosis Includes:
see MDM
MDM/Problems Addressed:
Note:
CHIEF COMPLAINT(S)
Dizziness and episodes of suspected heart pauses.
HISTORY OF PRESENT ILLNESS
The patient is an 81-year-old male who recently underwent a transcatheter aortic valve replacement (TAVR) procedure on May 14, two days prior to the emergency department visit. The patient has a subcutaneous patient monitor which recorded a
notable event during the bleacher operator hours (5:40 AM) indicating a heart pause of five seconds while the patient was presumedly asleep. This event was communicated to the patient at approximately 10:30 - 11:00 AM by his healthcare provider, who
advised that the patient come to the emergency department for further evaluation and monitoring due to the potential for recurrence.
The patient reports experiencing mild dizziness during transit to the facility, described as a �cloudy thing� passing over his eyes, but denied any intense symptoms or syncope. The emergency team is concerned about a potential heart block, and thus,
the patient has been placed on external pacer pads as a precautionary measure. Upon evaluation, the patients electrocardiogram displayed sinus rhythm without any pauses.
PAST MEDICAL AND SURGICAL HISTORY
The patient has a history of cardiac catheterization performed in 2001. The patient has been under surveillance for aortic valve dysfunction, initially identified by his steel chipper through the detection of a heart murmur. Annual echocardiographic
evaluations followed, leading to the recommendation for TAVR. The specific type of valve used during TAVR is unspecified.
CHRONIC MEDICAL CONDITIONS SIGNIFICANTLY AFFECTING CARE
The patient has hypertension managed with medication.
MEDICATIONS
- Aspirin 81 mg, once daily.
- Fish oil supplements.
- Losartan.
- Metoprolol.
REVIEW OF SYSTEMS
- Cardiovascular: Recently underwent TAVR. Reports no chest pain currently.
- Neurological: Reports mild dizziness, no syncope.
PHYSICAL EXAM
Nursing notes reviewed and vital signs reviewed.
PLAN
- Continued monitoring in the telemetry unit for further episodes and to evaluate the need for a pacemaker, potentially on Sunday if symptoms are stable.
- Cardiology consultation to determine ongoing management plan, including potential transition to a pacemaker if necessary.
- Admission to the intensive vascular unit for close observation given recent TAVR and current cardiac concerns.
- Routine labs have been drawn to monitor cardiac enzymes and electrolytes.
DIFFERENTIAL DIAGNOSIS
The Differential Diagnosis includes, in no particular order and is not limited to:
1. Heart block.
2. Sick sinus syndrome.
3. Vasovagal syncope.
4. Orthostatic hypotension.
5. Arrhythmia-induced syncope.
6. Post-procedure complications from TAVR.
7. Electrolyte imbalance.
8. Medication-induced bradycardia.
9. Transient ischemic attack.
10. Aortic stenosis post valve replacement.
84 y/o M
2 days post op TAVR
here with episode of heart block with long pause on monitor captured at home
sent in by cards for plan for admission to hospital and cards consult
however while on monitor, pt having several short 2-3 second AV dyssynchrony and complete heart block
he becomes minimally symptomatic feeling lightheaded
bp stable
cards awaare
EP dr. caridad millan in for pacer.
<Nusrat Burkett PA-C - Last Filed: 05/16/25 16:30>
*Pulse Oximetry
SaO2: 97
Oxygen Mode of Delivery: Room air
Patient hypoxic: no
*Critical Care Note
Total Time (30-74mins, 75-104mins- exclusive of procedures): Not Applicable
ED Attending Note
<Nusrat Burkett PA-C - Last Filed: 05/16/25 16:30>
-
Portions of this chart may have been created with voice recognition software.� Occasional wrong word or��sound alike� substitutions may have occurred due to the inherent limitations of voice recognition software.
<Srini Umana DO - Last Filed: 05/16/25 13:07>
ED Attending Note
Patient seen and examined by attending physician: Yes
I performed the substantive portion of visit, reviewed & personally made and approve the management plan that is documented in note by myself or BENJI.: Yes
ED Attending Note:
I evaluated the patient at bedside. The patient's heart rates have been in the 60s here, he did have some pauses here
Discharge Plan
Departure
Patient Disposition: Admit
Date of Disposition: 05/16/25
Time of Disposition: 12:59
Admit to: IVU
Presentation/result/management discussed w/ accepting MD/DO: Hospitalist
Condition: Fair
Covid-19: Not Applicable
Discharge Problem:
Heart block
Interventions
Interventions:
*Risk Screen - Suicide Last Done: 05/16/25 12:28
*General Assessment Last Done: 05/16/25 13:01
*Neglect/Abuse Screening Last Done: 05/16/25 12:28
*ED- Fall Risk Assessment Last Done: 05/16/25 13:01
*ED COVID-19 Vaccine History Last Done: 05/16/25 13:01
ED- Cardiac Assessment Last Done: 05/16/25 13:01
ED- Pulmonary Assessment Last Done: 05/16/25 13:01
[2025-05-16 13:24] LABS: Hematocrit 46.3 % (39.0-52.0); Hemoglobin 15.9 g/dL (13.0-18.0); Mean Corp Hgb Conc. 34.3 g/dL (33.0-37.0); Mean Corpuscular Volume 87.9 fL (80.0-94.0); Nucleated Red Blood Cells % 0 % (-); Platelet Count 86 10^3/uL (130-400); Red Cell Dist. Width 14.6 % (11.5-14.5)
[2025-05-16 13:25] LABS: APTT 27.5 Sec (23.4-35.0); INR 1.04; PT 13.9 Sec (11.4-14.6)
[2025-05-16 13:28] LABS: ALT (SGPT) 31 U/L (0-50); AST (SGOT) 49 U/L (17-59); Albumin 4.3 g/dl (3.5-5.0); Alkaline Phosphatase 54 U/L (38-126); Blood Urea Nitrogen 19 mg/dl (9-20); Calcium 9.0 mg/dl (8.4-10.2); Carbon Dioxide 28 mmol/L (22-30); Chloride 104 mmol/L (98-107); Estimated Creatinine Clearance 49 ml/min; Glucose 77 mg/dl (70-99); Magnesium 1.9 mg/dl (1.6-2.3); Potassium 3.8 mmol/L (3.5-5.1); Sodium 140 mmol/L (135-145); Total Protein 7.3 g/dl (6.3-8.2); eGFR > 60.00
[2025-05-16 13:55] LABS: Troponin I 0.097 ng/ml
[2025-05-16 13:59] LABS: TSH 4.73 uIU/ml (0.47-4.68)
--- NOTE | 2025-05-16 13:59 | HPS.HSE ---
Family Physician
-
Family Physician: Cr Luo
Chief Complaint
-
Received a call from cardiology regarding his cardiac monitoring showed some pauses
History of Present Illness
84-year-old male with history of severe aortic valve stenosis status post TAVR on May 14 and basically was discharged from the hospital yesterday also history of hypertension, dyslipidemia and GERD, he was discharged home with a monitor
yesterday and around 530 this morning received a phone call from his surgery aide that his telemetry showed he has recurrent pauses therefore he needed to come back to the hospital. Patient denies any symptomatic dizziness or palpitation or any
sweating or weakness or nausea or vomiting or any chest pain or shortness of breath or any urinary or GI symptoms.
Patient has some facial flush which has been going on for quite some time lately according to the patient without any other symptom.
In the ER looks like it showed still have more frequent pauses, seen by cardiology and planning to have a temporary pacemaker placed today and permanent at the beginning of next week.
He is awake, alert and oriented x 3 able to prep conversation accompanied by the at the bedside.
Medical History
Past Medical History
Past Medical History: Reports Other
Additional Past Medical History:
Past medical history and archive reviewed:
Hypertension
GERD
Dyslipidemia
Coronary artery disease
Severe aortic stenosis status post TAVR May 14, 2025
Chronic right bundle branch block
Surgical history:
TAVR
Skin cancer removal
Cataract surgery
Inguinal hernia repair on the right side
Cardiac cath
Right hip replacement
Social history: Ex-smoker quit more than 50 years ago, no alcohol or drug use
He is independent lives at home with the .
Family history: Reviewed and noncontributory
Past Surgical History: Reports Other
Social History
Unable to obtain full social history at this time due to: Other
Family History
Family History: Other
Allergies / Home Medications
Allergies reflects when Allergies were last updated in [facility].
Home Medications with original date entered in [facility]
Allergy/Medication List:
Allergies
Allergy/AdvReac Type Severity Reaction Status Date / Time
pollen extracts Allergy hay Verified 05/16/25 12:28
fever/seasonal
Home Medications
aspirin 81 mg tablet,delayed release 81 mg PO HS 04/29/25
icosapent ethyl 1 gram capsule 1 g PO BID 04/29/25
losartan 25 mg tablet 25 mg PO DAILY 04/29/25
metoprolol tartrate 50 mg tablet 50 mg PO BID 04/29/25
multivitamin 1 tab PO DAILY 04/29/25
pantoprazole 40 mg tablet,delayed release 40 mg PO QPM 04/29/25
rosuvastatin 5 mg tablet 5 mg PO HS 04/29/25
If medication reconciliation has not been performed, why?: Other
Review of Systems
-
A 12 point ROS was completed and negative except as noted: Yes
Physical Exam
Vital Signs
Vital Signs
Temp Pulse Resp BP Pulse Ox
98.2 F 67 17 127/85 94
05/16/25 12:28 05/16/25 13:55 05/16/25 13:55 05/16/25 13:55 05/16/25 13:55
Physical exam:
General: Awake, alert and oriented x3, facial flush not in distress and holds appropriate conversation.
HEENT: No active discharge, ecchymosis or bruising, moist lips, tongue and mucous membrane.
Eyes: No discharge or red conjunctiva, no nystagmus, pupils are reactive and equal
Neck:Supple, no JVD no bruit no goiter.
Respiratory: Normal AP contour and diameter, normal chest wall movement, normal respiratory effort, no respiratory distress,
Lungs: Good air entry bilaterally, no wheezing or rhonchi, no rales or crackles
Heart: S1, S2 regular, normal rate, no added sound. personnel monitor on his chest,
Gastrointestinal: Positive bowel sounds, soft, nontender, no guarding or rigidity or organomegaly
Musculoskeletal: , no chest wall abnormality or tenderness. All joints and extremities have good range of motion, no muscle tenderness or any joint swelling or tenderness.
Extremities: No pitting edema, good peripheral pulses, good range of motion
Skin: Warm and dry, no ulceration, normal color.
Neurological: Awake, alert and oriented x3, good muscle tone and no facial droop and move extremities freely, speech clear and comprehensive,
Psychiatric: Normal mood, normal thought and judgment, normal affect,
Physical Exam
Hematologic/Lymphatic: Other
Laboratory Results
-
05/16/25 13:04
05/16/25 13:04
Laboratory Results
PT 13.9 Sec (11.4-14.6) 05/16/25 13:04
INR 1.04 05/16/25 13:04
APTT 27.5 Sec (23.4-35.0) 05/16/25 13:04
Total Bilirubin 1.6 mg/dl (0.2-1.3) H 05/16/25 13:04
AST 49 U/L (17-59) 05/16/25 13:04
ALT 31 U/L (0-50) 05/16/25 13:04
Alkaline Phosphatase 54 U/L (38-126) 05/16/25 13:04
Troponin I 0.097 ng/ml H* 05/16/25 13:04
EKG showed normal sinus rhythm rate around 65, TX 156, QTc 472, bundle branch block otherwise no acute abnormalities. When compared to prior EKG PVCs not existing now.
Data Reviewed
-
Medical Tests (Nuc Med, Echo, EKG etc): Image Personally Visualized and interpreted, Discussed with Patient and Discussed with Family
Lab Data: Labs Reviewed by me, Discussed with Patient and Discussed with Family
Old Records: Reviewed
Impression/Plan
-
IMPRESSION:
84-year-old male who was discharged from the hospital yesterday after had a TAVR on May 14, called back to the hospital after his cardiac monitoring showed frequent pauses.
Frequent cardiac pauses:
- Seen by cardiology and planning temporary pacemaker today and permanent next week
- Cardiac monitoring
-Which is TSH 4.7
-Electrolytes in a good range optimize electrolyte, potassium 3.8 and mag 1.9
-Hold Toprol
Elevated troponin: Likely secondary to TAVR yesterday,
Follow the trend
Aortic valve stenosis: Status post TAVR May 14, 2025
Hypertension: Continue losartan hold Toprol
All discussed with the patient and the in detail at the bedside and expressed understanding of plans because of the ER physician
CODE STATUS full code
DVT prophylaxis
--- NOTE | 2025-05-16 14:25 | ITS.CL.PN ---
Addendum entered and electronically signed by Dulce Levy MD 05/16/25 21:36:
Indication: Phase 4 heart block status post recent TAVR with a 26 mm Bonds ROSY TAVR valve in the setting of a baseline right bundle branch block.
Dulce Levy MD
Original Note:
Student Dean - Procedure Note
Procedure
Procedure Note:
TRANSVENOUS PACEMAKER REPORT
�
Date of Procedure: May 16, 2025
�
Referring: Iain Culp MD
�
PROCEDURES:
1. Temporary transvenous pacemaker via right IJ access.
2. Moderate sedation
�
INDICATION: Face for heart block status post recent TAVR with a 26 mm Bonds ROSY TAVR valve in the setting of a baseline right bundle branch block.
�
ACCESS: Right internal jugular vein, 7 Wolof sheath, under ultrasound guidance using a micropuncture kit.
�
PROCEDURE DETAIL: After the usual sterile prep and drape, the right internal jugular site was locally anesthetized and a 6F vascular sheath inserted into the right internal jugular vein using a 4F micro-puncture kit with ultrasound guidance. �Using
fluoroscopic guidance, a 6F balloon-tipped pacing catheter was inserted through the right internal jugular venous sheath into the apex of the right ventricle. �The cables were connected, and settings were adjusted to confirm pacing capture. �The
sheath was sewn into place and a sterile dressing was applied. Limited fluoroscopy of the lung aguirre revealed no obvious pneumothorax. �
CONCLUSIONS
1. Status post successful temporary transvenous pacemaker via right IJ access.
�
RECOMMENDATIONS
1. Plan to check daily x-ray while the temporary transvenous pacemaker is in place.
2. Plan for permanent pacemaker placement on Sunday, May 18, 2025.
Dulce Levy MD, [facility], [facility]
�
�
Copy to: Iain Culp MD and Ciro Kumar MD
�
�
�
�
�
�
--- NOTE | 2025-05-16 14:39 | CON.CAR ---
Consultation
Consultation Request
Date/Time Consultation Requested: May 16, 2025 1 PM
Date/Time Consultation Performed: May 16, 2025 2:40 PM
Requesting Provider: Emergency room
Performing Provider: Iain Culp
Reason for Consultation: Heart block
Medical History
-
Chief Complaint: Heart block
History of Present Illness:
84-year-old male with past medical history of severe status post TAVR are May 14, 2025, hyperlipidemia, CAD, hypertension, who is here after being notified on his heart monitor that he has developed complete heart block. I called the
patient and he was asymptomatic luckily. However, after discussion with interventional cardiology this is at high risk and he should come in for possible temporary venous pacer. While in the room it is noted on monitor that he has episodes of
complete heart block and AV dyssynchrony. I have discussed with interventional cardiology Dr. Levy and he will be getting an TVP later today.
Past Medical History
Past Medical History: CAD, GERD, HTN, Hypercholesterolemia and Other (RBBB PCI)
Past Surgical History: Other (V)
Social History
Tobacco: Former Smoker
Alcohol: Occasional
Drug: None
Personal:
Living: With Family
Family History
Family History: Reviewed & Not Pertinent
Allergies / Home Medications
Allergy/AdvReac Type Severity Reaction Status Date / Time
pollen extracts Allergy hay Verified 05/16/25 12:28
fever/seasonal
�Medication �Instructions �Recorded �Confirmed �Type
aspirin 81 mg tablet,delayed 81 mg PO HS 04/29/25 05/16/25 History
release
icosapent ethyl 1 gram capsule 1 g PO BID 04/29/25 05/16/25 History
losartan 25 mg tablet 25 mg PO DAILY 04/29/25 05/16/25 History
metoprolol tartrate 50 mg tablet 50 mg PO BID 04/29/25 05/16/25 History
multivitamin 1 tab PO DAILY 04/29/25 05/16/25 History
pantoprazole 40 mg tablet,delayed 40 mg PO QPM 04/29/25 05/16/25 History
release
rosuvastatin 5 mg tablet 5 mg PO HS 04/29/25 05/16/25 History
Review of Systems
-
All other systems: Negative unless noted
Physical Exam
Vital Signs
Temp Pulse Resp BP Pulse Ox
98.2 F 64 15 117/81 95
05/16/25 12:28 05/16/25 14:30 05/16/25 14:30 05/16/25 14:30 05/16/25 14:30
Lab Results
05/16/25 13:04
05/16/25 13:04
Troponin I 0.097 ng/ml H* 05/16/25 13:04
Physical Exam
General: Well Developed, Well Nourished and No Apparent Distress
HEENT: Normocephalic
Respiratory: Clear
Cardiac: S1/S2
Skin: Warm and Dry
Neuro: AO x 3
Psych: Calm
Impression / Plan
-
I/P: 84-year-old male with severe AAS status post TAVR, CAD with PCI, hypertension, dyslipidemia, GERD who is here after development of intermittent episodes of complete heart block.
Complete heart block
- Will go for TVP today
- Place in ICU
- N.p.o. after midnight on Sunday for permanent pacemaker on Sunday
CAD
- Continue aspirin statin
Hypertension
- Continue losartan
- Hold AV moriah blockers
Dyslipidemia
- Continue statin
Data Reviewed
-
EKG: Tracing Personally Visualized and interpreted (sr w/ CHB )
Medical Tests (Nuc Med, Echo etc): Image Personally Visualized and interpreted and Report Reviewed by me
Labs: Labs Reviewed by me
--- NOTE | 2025-05-16 14:44 | CM ---
security systems manager reviewed patient's chart and met with patient and spouse, patient was recently discharged from [facility]. Patient was sent home with [facility] visiting nurses. Patient lives with spouse in a 2 story home, with 7 steps to
enter, patient is independent with adl's and ambulation, no dme. Patient's spouse uses a walker. Patient was sent home with [facility] FERRER[facility], referral sent to [facility].
PCP: Cr Luo
[facility] in [place].
Plan; Home with [facility] visiting nurses.
[facility] Chawla
[phone]
[2025-05-16] MEDS: PROTONIX 40 MG PO (18:29)
--- NOTE | 2025-05-16 19:13 | PTCARENOTE ---
Patient received from CCL s/p TVP placement. NSR, occasional pacer spikes noted via monitor. Spikes do not appear to correlate w/a following complex. Dr. Levy updated, ROSLYN Kamara to bedside, pacer adjusted by PA. Admission information completed.
Increased ectopy noted, Dr. Levy updated. Patient denies pain, dizziness. Dr. Levy to bedside.
--- NOTE | 2025-05-16 19:45 | PTCARENOTE ---
assumed care of pt from previous RN. pt A&Ox4, bedrest s/p temp pacer. R IJ cordis w/ temp pacing wires. settings VVI 40//. SR on tele-monitor, BBB, occasional PVC triplets, occasional pacer not capturing. Dr. Levy in to re-evaluate pt. POX 94%
on RA. abd s/n, +BS. condom cath in place. pt w/ c/o bladder fullness, discomfort. condom catheter draining clear, yellow colored urine. PIV intact. see worklist for complete nursing assessment, interventions, VS, and I&Os.
--- NOTE | 2025-05-16 19:47 | W.PN.UPDATE ---
Update Note
Progress Note Update
Interventional cardiology update
Soon after patient was transferred to the CVICU bed on telemetry he was noted to have intermittent loss of capture. Nursing [place] texted me multiple telemetry strips which were reviewed personally by me as well as the chest x-ray was personally
reviewed by me. Chest x-ray showed a stable position of the temporary venous pacemaker. He was also noted to have frequent ectopy including ventricular couplets and triplets despite potassium being 3.8 and magnesium being 1.9.
In the setting I came back bedside to check temporary venous pacemaker and while testing he does capture at 100 bpm with the threshold still at 1 mA. There is no obvious issues noted with sensitivity. As soon as we turn it back to a backup rate
with output at 20 mA, he would have intermittent normal functioning however other times would also have concern for loss of capture. A repeat chest x-ray was obtained stat which showed a stable position of the TVP. Using the balloon tip, I
manipulated the temp wire at bedside to try and have the to be at a different position for more stability and reassessed. At the time of testing he would capture however soon when placed on backup he would have loss of capture. When patient would
have loss of capture with short runs of heart block, he would start to become symptomatic with lightheadedness.
In the setting decision was made to take him back to the heart catheterization lab initially to attempt fluoroscopy guided repositioning if possible. We did discuss that in case we keep running into a similar issue we may have to put a new device
in or consider going transfemoral to allow for a more stable temporary venous pacemaker.
Discussed all of the above with nursing at bedside and CT surgery PA. I called the dumbwaiter operator and him having the heart team come in urgently.
Also discussed with primary demographic analyst.
Dulce Levy MD, [facility], [facility]
Critical care time: 42 minutes
[2025-05-16] MEDS: LASIX 40 MG IV (20:06)
--- NOTE | 2025-05-16 20:15 | PTCARENOTE ---
pt bladder scanned for 800 ml. pt voided 50 ml w/ condom cath. order for straight cath. 950 ml out. 40 mg IV Lasix given.
[2025-05-16] MEDS: DUONEB 3 ML INH (20:25)
--- NOTE | 2025-05-16 20:27 | PTCARENOTE ---
pt to CCL w/ Dr Levy at 2024.
--- NOTE | 2025-05-16 21:27 | ITS.CL.PN ---
Overhead Line Worker - Procedure Note
Procedure
Procedure Note:
TRANSVENOUS PACEMAKER REPORT
�
Date of Procedure: May 16, 2025
�
Referring: Iain Culp MD
�
PROCEDURES:
1. Repeat temporary transvenous pacemaker via right common femoral venous access
2. Moderate sedation
�
INDICATION: Failed initial right IJ TVP with recurrent loss of capture despite manipulation at bedside and inability to manipulate even with fluoroscopy guidance and therefore decision was made to change access to right common femoral venous access.
Initially patient presented with intermittent phase 4 heart block status post recent TAVR with a 26 mm Bonds ROSY TAVR valve in the setting of a baseline right bundle branch block.
�
ACCESS: Right common femoral vein, 6 Korean sheath, under ultrasound guidance using a micropuncture kit.
�
PROCEDURE DETAIL: After the usual sterile prep and drape, the right internal jugular site was locally anesthetized and a 6F vascular sheath inserted into the right common femoral vein using a 4F micro-puncture kit with ultrasound guidance. �Using
fluoroscopic guidance, a 6F balloon-tipped pacing catheter was inserted through the right common femoral venous sheath into the apex of the right ventricle. �The cables were connected, and settings were adjusted to confirm pacing capture. Threshold
is at 1 mA at the end of the case. �The sheath was sewn into place and a sterile dressing was applied. Limited fluoroscopy of the lung aguirre revealed no obvious pneumothorax. �
CONCLUSIONS
1. Status post successful temporary transvenous pacemaker via right common femoral venous access.
�
RECOMMENDATIONS
1. Plan to check daily x-ray while the temporary transvenous pacemaker is in place.
2. Plan for permanent pacemaker placement on Sunday, May 18, 2025.
3. Bedrest while the transvenous temporary pacemaker is in place.
Dulce Levy MD, [facility], [facility]
�
Copy to: Iain Culp MD and Ciro Kumar MD
�
--- NOTE | 2025-05-16 22:00 | PTCARENOTE ---
pt returned to CV from landscape laborer. TVP in R femoral vein. back up settings VVI 40/10 at 62cm. SR w/ BBB on tele-monitor. occasional PVCs. occasional pacing. POX 96% on 2 L NC. condom catheter placed back on pt-- draining clear, yellow colored urine.
[2025-05-16] MEDS: MAGNESIUM OXIDE 400 MG PO (22:04)
[2025-05-16] MEDS: ASPIR LOW (ENTERIC COATED) 81 MG PO (22:04)
[2025-05-16] MEDS: KLOR-CON 40 MEQ PO (22:04)
[2025-05-16] MEDS: CRESTOR 5 MG PO (22:04)
[2025-05-16] MEDS: TYLENOL 650 MG PO (23:29)
[2025-05-17] VITALS (24 sets, daily range): BP systolic 100–142; BP diastolic 54–79; BMI 27.6
--- NOTE | 2025-05-17 | PTCARENOTE ---
pt w/ c/o bladder pain. pt voided 500ml w/ condom catheter. post void residual scan- 779ml. order for nicole catheter placed by DUPLICATING MACHINE SERVICER. nicole placed, 850ml output. pt w/ immediate relief of bladder pain.
SR w/ occasional pacing on tele-monitor. POX 96-97% on 2 L NC.
--- NOTE | 2025-05-17 05:00 | PTCARENOTE ---
no acute changes. VSS. AM labs collected and sent. AM plan of care discussed w/ pt, pt in agreement.
[2025-05-17 05:23] LABS: Hematocrit 42.9 % (39.0-52.0); Hemoglobin 14.9 g/dL (13.0-18.0); Mean Corp Hgb Conc. 34.7 g/dL (33.0-37.0); Mean Corpuscular Volume 85.8 fL (80.0-94.0); Platelet Count 65 10^3/uL (130-400); Red Cell Dist. Width 14.3 % (11.5-14.5)
[2025-05-17 05:36] LABS: Blood Urea Nitrogen 18 mg/dl (9-20); Calcium 8.8 mg/dl (8.4-10.2); Carbon Dioxide 26 mmol/L (22-30); Chloride 103 mmol/L (98-107); Estimated Creatinine Clearance 54 ml/min; Glucose 107 mg/dl (70-99); Magnesium 1.9 mg/dl (1.6-2.3); Potassium 4.0 mmol/L (3.5-5.1); Sodium 137 mmol/L (135-145); eGFR > 60.00
--- NOTE | 2025-05-17 08:30 | PTCARENOTE ---
Patient received from hotel night auditor resting in bed, sleeping but arousable and appropriate. NSR w/occasional pacer spikes noted, SaO2 @ 96% on 2lnc. RIJ Cordis w/kvo infusing. RFV sheath w/TVP in place set to VVI 40/10. Hoffman catheter to gravity.
Patient updated to plan of care for the day, in agreement. See work list for full assessment and interventions performed.
[2025-05-17] MEDS: COZAAR 25 MG PO (10:16)
--- NOTE | 2025-05-17 11:11 | W.PN.CD ---
Today's Communication / Plan
-
TVP in place
PPM tomorrow
NPO after midnight
Impression / Plan
-
I/P: 84-year-old male with severe AAS status post TAVR, CAD with PCI, hypertension, dyslipidemia, GERD who is here after development of intermittent episodes of complete heart block.
Complete heart block
- s/p TVP
- N.p.o. after midnight on Sunday for permanent pacemaker on Sunday
CAD
- Continue aspirin statin
Hypertension
- Continue losartan
- Hold AV moriah blockers
Dyslipidemia
- Continue statin
Physical Exam
Vital Signs/Labs
Vital Signs
Temp Pulse Resp BP Pulse Ox
98.3 F 92 20 129/74 95
05/17/25 08:00 05/17/25 10:16 05/17/25 09:00 05/17/25 10:16 05/17/25 08:30
05/16/25 05/17/25 05/18/25
06:59 06:59 06:59
Actual Weight 173 lb 8.061 oz
05/17/25 04:55
05/17/25 04:55
PT 13.9 Sec (11.4-14.6) 05/16/25 13:04
INR 1.04 05/16/25 13:04
APTT 27.5 Sec (23.4-35.0) 05/16/25 13:04
Magnesium 1.9 mg/dl (1.6-2.3) 05/17/25 04:55
TSH 4.73 uIU/ml (0.47-4.68) H 05/16/25 13:04
Free T4 1.64 ng/dl (0.78-2.19) 05/17/25 04:55
LAB Results
05/16/25
13:04
Troponin I 0.097 H*
Physical Exam
Constitutional: No acute distress and Comfortable
EENT: Anicteric
Cardiovascular: Rhythm & rate is regular
Respiratory: Respiratory effort normal
GI: Soft
Neuro/Psych: Alert and Oriented
Data Reviewed
-
Date of Service: May 17, 2025
EKG: Tracing Personally Visualized and interpreted (CHB, paced, and SR)
Echo: Report Reviewed by me
Labs: Labs Reviewed by me
--- NOTE | 2025-05-17 12:05 | PTCARENOTE ---
Patient resting comfortably, assessment stable. Family at bedside for visit.
--- NOTE | 2025-05-17 16:05 | PTCARENOTE ---
Assessment unchanged. Patient resting in bed, denies pain. R femoral site remains cdi, no ecchymosis or hematoma noted, distal pulse palpable. NSR-ST noted via cm, w/occasional paced beats.
[2025-05-17] MEDS: PROTONIX 40 MG PO (17:08)
[2025-05-17] MEDS: TYLENOL 650 MG PO ×2 (17:08→21:25)
--- NOTE | 2025-05-17 20:00 | PTCARENOTE ---
assumed care of pt from previous RN. pt A&Ox4, bedrest s/p TVP via R femoral vein. back up settings , locked at 62cm. Complete heart block on tele-monitor. POX 96-97% on 2 L NC. abd s/n, +BS. nicole catheter draining monty colored urine. R IJ
cordis w/ KVO. R femoral sheath w/ KVO. PIV x2 intact.
[2025-05-17] MEDS: CRESTOR 5 MG PO (20:35)
[2025-05-17] MEDS: ASPIR LOW (ENTERIC COATED) 81 MG PO (20:41)
[2025-05-18] VITALS (24 sets, daily range): BP systolic 98–145; BP diastolic 55–97; BMI 28.2
--- NOTE | 2025-05-18 00:30 | PTCARENOTE ---
Addendum entered by Nancie Floyd RN 05/18/25 00:43:
pt NPO at 0000 for PPM today.
Original Note:
assessment remains unchanged. VSS.
[2025-05-18 04:26] LABS: Hematocrit 42.9 % (39.0-52.0); Hemoglobin 15.0 g/dL (13.0-18.0); Mean Corp Hgb Conc. 35.0 g/dL (33.0-37.0); Mean Corpuscular Volume 87.2 fL (80.0-94.0); Nucleated Red Blood Cells % 0 % (-); Platelet Count 65 10^3/uL (130-400); Red Cell Dist. Width 14.0 % (11.5-14.5)
--- NOTE | 2025-05-18 04:30 | PTCARENOTE ---
no acute changes. VSS. AM labs collected and sent. pt remains NPO for PPM today.
[2025-05-18 04:31] LABS: Blood Urea Nitrogen 17 mg/dl (9-20); Calcium 8.4 mg/dl (8.4-10.2); Carbon Dioxide 28 mmol/L (22-30); Chloride 104 mmol/L (98-107); Estimated Creatinine Clearance 61 ml/min; Glucose 153 mg/dl (70-99); Potassium 3.4 mmol/L (3.5-5.1); Sodium 137 mmol/L (135-145); eGFR > 60.00
--- NOTE | 2025-05-18 08:00 | W.PN.CD ---
Today's Communication / Plan
-
PPM today
heme onc consult
Impression / Plan
-
I/P: 84-year-old male with severe AAS status post TAVR, CAD with PCI, hypertension, dyslipidemia, GERD who is here after development of intermittent episodes of complete heart block.
Tele with a few episodes of HB with TVP pacing
Complete heart block
- s/p TVP
- plan for PPM today
CAD
- Continue aspirin statin
Hypertension
- Continue losartan
- Hold AV moriah blockers
Thrombocytopenia
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
- puma today at 65
- given plan for heparin exposure with PPM today, will get input from heme onc
Dyslipidemia
- Continue statin
Physical Exam
Vital Signs/Labs
Vital Signs
Temp Pulse Resp BP Pulse Ox
36.6 C 91 13 127/80 96
05/18/25 04:00 05/18/25 06:00 05/18/25 06:00 05/18/25 06:00 05/18/25 06:00
05/17/25 05/18/25 05/19/25
06:59 06:59 06:59
Actual Weight 78.7 kg 80.4 kg
05/18/25 03:52
05/18/25 03:52
PT 13.9 Sec (11.4-14.6) 05/16/25 13:04
INR 1.04 05/16/25 13:04
APTT 27.5 Sec (23.4-35.0) 05/16/25 13:04
Magnesium 1.9 mg/dl (1.6-2.3) 05/17/25 04:55
TSH 4.73 uIU/ml (0.47-4.68) H 05/16/25 13:04
Free T4 1.64 ng/dl (0.78-2.19) 05/17/25 04:55
LAB Results
05/16/25
13:04
Troponin I 0.097 H*
Physical Exam
Constitutional: Comfortable
Cardiovascular: Rhythm & rate is regular
Respiratory: Respiratory effort normal
Neuro/Psych: AO x 3
Data Reviewed
-
Date of Service: May 18, 2025
Medical Decision Making: Reviewed Test Results
EKG: Tracing Personally Visualized and interpreted
X-Ray/CT/US/MRI/NUC/PET: Image Personally Visualized and interpreted
Labs: Labs Reviewed by me
[2025-05-18] MEDS: TYLENOL 650 MG PO (08:02)
[2025-05-18] MEDS: COZAAR 25 MG PO (08:02)
--- NOTE | 2025-05-18 08:55 | PTCARENOTE ---
assumed care of pt from previous shift RN, sinus rhythm on tele w occasional paced beats. + peripheral pulses, no edema noted. Lungs diminished, pox 96-98% on 2L NC. +BS, NPO maintained. Hoffman draining yellow. Cordis and right FV w KVO infusing.
Venous pacing wire floated through RFV. Plan of care reviewed and questions encouraged.
--- NOTE | 2025-05-18 09:15 | CON.ONC ---
Consultation
-
Date Consultation Requested: 05/18/25
Date Consultation Performed: 05/18/25
Requesting Provider: Ciro Kumar MD
Performing Provider: Dr. Perry
Reason for Consultation: Anticoagulation prior to PPM
Impression
Impression
Thrombocytopenia
Severe Aortic Valve Stenosis s/o TAVR on 05/14/2025 now with episodes of complete Heart Block
Coronary Artery Disease with PCI
Essential Hypertension
Plan
Plan
-Patient with Thrombocytopenia in the setting of recent TAVR and temporary pacemaker placement. He had recieved heparin on 05/14 with his TARV, but no labs are avaiable from that day to show what the platelet count was. Since 05/15, platelets have
been downtrending to 65 where they have remained since 05/17.
-4T score revealed a score of 2 points, with a low probability of HIT (<5%)
-Alternate sources for thrombocytopenia include recent Ancef use (though one would expect this to be seen 5-10 days out from exposure), recent visits to the gold leaf laborer
-Plan to proceed with PPM today with heparin for anticoagulation
-Thank you for the consult
Patient History
History of Present Illness
This is a 84 y/o male with pmhx of severe aortic valve stenosis who was recently seen at this hospital on 05/14/2025 for a TAVR. He was discharged from the hospital on 05/15/2025 with a monitor. Around 5:30AM on 05/16, he received a call from his
study manager saying that the monitor was showing recurrent pauses and he was to report to the hospital immediately. In the ED, telemetry showed episodes of complete heart block and AV dyssynchrony. He was seen by cardiology, and was brought to the
catheterization lab of temporary pacemaker placement with plan to have a permanent pacemaker placed at the beginning of the week.
Soon after his transfer to the CVICU that same day, he was noted on telemetry to have intermittent loss of capture. Chest X-ray at that time showed stable position of the temporary venous pacemaker. His potassium was 3.8, and his magnesium was 1.9.
During episodes of loss of capture with short runs of heart block, he would become lightheaded. He was taken back to the catheterization lab, where a a repeat temporary transvenous pacemaker was placed.
During the course of these hospitalizations, he did begin to develop thrombocytopenia. His platelets downtrended from 114 on 05/15, to 65 on 05/17 where it remains today. He did have Heparin on 05/14 during his TAVR, but no lab work is available from
that day. He has never been told before he has low platelets. He does have 1 beer 1-2 times per week. He previously had consumed more alcohol of different varieties, but �swore off of that a long time ago�.
Patient was being prepared for visit to the gold leaf laborer when I arrived. He has not had any abnormal nose bleeds or rectal bleeding. He has had some bruising, but these appeared >1 month ago.
Past-Medical/Surgical History
Severe Aortic Valve Stenosis s/o TAVR on 05/14/2025 now with episodes of complete Heart Block
Coronary Artery Disease with PCI
Essential Hypertension
Dyslipidemia
GERD
Patient Medication
�Medication �Instructions �Recorded �Confirmed �Last Taken �Type
aspirin 81 mg tablet,delayed 81 mg PO HS Blood Clot 04/29/25 05/16/25 05/15/25 History
release Prevention/Tx
icosapent ethyl 1 gram capsule 1 g PO BID High Cholesterol 04/29/25 05/16/25 05/16/25 History
losartan 25 mg tablet 25 mg PO DAILY Blood Pressure 04/29/25 05/16/25 05/16/25 History
metoprolol tartrate 50 mg tablet 50 mg PO BID Blood Pressure 04/29/25 05/16/25 05/16/25 History
multivitamin 1 tab PO DAILY Supplement 04/29/25 05/16/25 05/16/25 History
pantoprazole 40 mg tablet,delayed 40 mg PO QPM Gastrointestinal Issue 04/29/25 05/16/25 05/15/25 History
release
rosuvastatin 5 mg tablet 5 mg PO HS High Cholesterol 04/29/25 05/16/25 05/15/25 History
Active Medications
Generic Name Dose Route Start Last Admin
Trade Name Freq PRN Reason Stop Dose Admin
Acetaminophen 650 mg 05/16/25 17:30 05/18/25 08:02
Acetaminophen 325 Mg Tablet PO 06/13/25 17:29 650 mg
Q4HPRN PRN Administration
mild pain/HORNER/temp> 100.4F
Albuterol/Ipratropium 3 ml 05/16/25 19:56
Ipratropium 0.5/Albuterol 3 Mg (3 Ml Ampul) INH
R Q4HPRN PRN
wheezing and SOB
Protocol
Aspirin 81 mg 05/16/25 22:00 05/17/25 20:41
Aspirin 81 Mg (Enteric Coated) Tablet PO 06/13/25 21:59 81 mg
HS OLEG Administration
Bisacodyl 10 mg 05/16/25 17:30
Bisacodyl 10 Mg Rectal Suppository RECTAL 06/13/25 17:29
[id number] PRN
constipation
Losartan Potassium 25 mg 05/17/25 08:00 05/18/25 08:02
Losartan 25 Mg Tablet PO 06/14/25 07:59 25 mg
DAILY OLEG Administration
Non-Formulary Medication 1 grams 05/16/25 20:00
Icosapent Ethyl PO 06/13/25 19:59
BID OLEG
Pantoprazole Sodium 40 mg 05/16/25 18:00 05/17/25 17:08
Pantoprazole 40 Mg Delayed Release Tablet PO 06/13/25 17:59 40 mg
QPM OLEG Administration
Polyethylene Glycol 17 grams 05/16/25 17:30
Polyethylene Glycol Powder 17 Grams Packet PO 06/13/25 17:29
DAILYPRN PRN
constipation
Rosuvastatin Calcium 5 mg 05/16/25 22:00 05/17/25 20:35
Rosuvastatin (Crestor) 5 Mg Tablet PO 06/13/25 21:59 5 mg
HS OLEG Administration
Senna/Docusate Sodium 1 tablet 05/16/25 17:30
Docusate W/Senna (Tori-Colace) Tablet PO 06/13/25 17:29
BIDPRN PRN
constipation
Review of Systems
-
History Source: Patient
Constitutional: Denies Fever or Chills
Respiratory: Denies Cough
Cardiac: Denies Chest Pain
Hematologic/Lymphatic: Denies Bleeding, Bruising or Blood Clots
Physical Exam
-
General: Well Developed, Well Nourished, No Apparent Distress and Comfortable
GI: Soft and No Organomegaly
Skin: Warm and Dry
Hematologic / Lymphatic: No Petechiae
Psych: Calm and Intact Judgement/Insight
Labs
Lab Results
WBC 10.3 10^3/uL (4.8-10.8) 05/18/25 03:52
RBC 4.92 10^6/uL (4.70-6.10) 05/18/25 03:52
Hgb 15.0 g/dL (13.0-18.0) 05/18/25 03:52
Hct 42.9 % (39.0-52.0) 05/18/25 03:52
MCV 87.2 fL (80.0-94.0) 05/18/25 03:52
MCH 30.5 pg (27.0-31.0) 05/18/25 03:52
MCHC 35.0 g/dL (33.0-37.0) 05/18/25 03:52
RDW 14.0 % (11.5-14.5) 05/18/25 03:52
Plt Count 65 10^3/uL (130-400) L 05/18/25 03:52
MPV 12.0 fL (7.4-10.4) H 05/18/25 03:52
Abs Immat Gran (auto) 0.1 10^3/uL (0-0.05) H 05/18/25 03:52
Absolute Neuts (auto) 7.3 10^3/uL (1.4-6.5) H 05/18/25 03:52
Absolute Lymphs (auto) 1.5 10^3/uL (1.2-3.4) 05/18/25 03:52
Absolute Monos (auto) 1.0 10^3/uL (0.1-0.6) H 05/18/25 03:52
Absolute Eos (auto) 0.4 10^3/uL (0-0.7) 05/18/25 03:52
Absolute Basos (auto) 0.1 10^3/uL (0-0.2) 05/18/25 03:52
Immature Gran % 0.5 % (0-0.5) 05/18/25 03:52
Neutrophils % 71.0 % (42.2-75.2) 05/18/25 03:52
Lymphocytes % 14.1 % (20.5-51.1) L 05/18/25 03:52
Monocytes % 10.1 % (1.7-9.3) H 05/18/25 03:52
Eosinophils % 3.7 % (0-6) 05/18/25 03:52
Basophils % 0.6 % (0-2) 05/18/25 03:52
Creatinine 0.8 mg/dL (0.7-1.3) 05/18/25 03:52
Vital Signs
Vital Signs
Temp Pulse Resp BP Pulse Ox
98.2 F 56 20 130/82 97
05/18/25 08:00 05/18/25 08:00 05/18/25 08:00 05/18/25 08:00 05/18/25 08:00
--- NOTE | 2025-05-18 10:30 | PTCARENOTE ---
PIV placed in left arm and CHG bath completed prior to PPM placement.
--- NOTE | 2025-05-18 12:39 | PTCARENOTE ---
report given to CCL
--- NOTE | 2025-05-18 16:14 | PTCARENOTE ---
received pt from CCL s/p PPM placement. Right IJ cordis removed as ordered. Right femoral site intact. VSS. Bedrest explained to pt and his family. Routine EKG and CXR completed.
[2025-05-18] MEDS: PROTONIX 40 MG PO (17:25)
--- NOTE | 2025-05-18 17:47 | ITS.CL.PACE ---
[employer] - Pacemaker Implant
Pacemaker Implant
Procedure Report:
Left Bundle Branch pacing dual chamber Permanent Pacemaker Placement:
Mr. Fishman is an 84-year-old gentleman with history of s/p TAVR 05/14/25 who had developed intermittent high grade AV block and required TVP x2 over the weekend. He is requiring pacing intermittently with complete heart block and is in need for
a pacemaker.
Indications:
Complete heart block.
Date of the Procedure: 05/18/25
Pre-Operative Diagnosis: Complete heart block
Post-Operative Diagnosis: Complete heart block
Procedure Performed: LEFT BUNDLE BRANCH PACING WITH DUAL CHAMBER PERMANENT PACEMAKER IMPLANTATION.
Temporary pacing wire removal
Performing physician:
Tamera Kumari MD
Anesthesia:
See anesthesia records
Detailed Description of the Procedure:
The patient was identified using hospital identification and informed consent obtained for the procedure. The risks were explained to the patient and the family including, but not limited to: Bleeding, infection, arrhythmia, stroke,
vascular/cardiac/lung puncture, surgery, pacemaker dependency/device malfunction. All questions were answered.
Anesthesia service provided sedation as reported separately. Antibiotics administered IV for risk of bacterial colonization. After obtaining informed and written consent, the patient was brought to the electrophysiology laboratory.
The initial rhythm was sinus rhythm with complete heart block and temporary wire pacing.
A timeout was performed immediately before the procedure. The left chest was prepped from the nipple to the angle of the jaw with chlorhexidine, and draped following sterile technique in usual routine.�
A surgical pause and time out was performed immediately prior to the procedure with review of her medical history, recent labs, allergies and medications with site of procedure identified and consent noted in the chart. Antibiotics pre operatively
given. All team members concurred.
The procedure site was meticulously prepared with surgical scrub and allowed to dry with no pooling. Sterile draping was applied to cover the procedure site. The image intensifier was draped with sterile bag and positioned over the patient.
The left infraclavicular region was prepped and draped in the usual sterile fashion. Local anesthesia was administered subcutaneously using 1% lidocaine / Bupivacaine. The left cephalic vein cutdown was done and guide wires were advanced to the
inferior vena cava (IVC) under flouro guidance.
A subcutaneous pocket was created with blunt dissection and use of electrocautery. Hemostasis was excellent.
Attention then was turned to the left bundle branch pacing lead. The guide wire was advanced to the RA and was advanced to the RV. The preformed curved long hemostatic peel away HIS sheath was advanced into the RV cavity. A left bundle pacing wire
was advanced into the sheath to the tip with ventricular signals noted with unipolar manner. The sheath with the pacing lead was moved deeper into the RV cavity from the HIS location on the septum at a more inferior and distal to the HIS signals.
Once adequate signals were noted on the electrograms of the pacing lead in the sheath with W pattern signals on the RV septum, the lead was advanced and clockwise turns were done under fluoroscopic guidance. The septum was engaged and the lead was
paced intermittently after every 2-3 turns. The Impedance of the lead was measured that remained stable around 1000 Ohm and the lead was not able to advance into the septum. The ventricular capture was monitored throughout and the captures gradually
changed from RV pacing to non-selective pacing to LBB pacing with R wave on V1.
With RBBB pattern noted on the pacing lead, it was decided to accept the location as optimal location. The long guiding sheath was cut and removed from the RV without change in lead position, impedance, sensing, or capture. The lead was sutured to
the underlying pectoralis fascia with 2-0 Ethibond stitches.
The second sheath could not be advanced through the small cephalic vein and an axillary vein cannulation was done using micropuncture apparatus.
The RA lead was anchored in the right atrial appendage with engaging the active-fixation apparatus. There was excellent sensing, pacing, and impedance from the leads, with no diaphragmatic stimulation at 10 V output.�Bovie cautery, antibiotics, and
fluoroscopy were used.
The leads were attached to the pulse generator in standard configuration with acceptable sensing and threshold parameters. The pocket was irrigated with antibiotic solution; the pocket was inspected with no active bleeding noted. The device and the
leads were placed in the pocket.
Deep subcutaneous tissues were closed with 3 layers of 2-0V loc sutures; and the dermis was reopposed using a running 4-0 Monocryl subcuticular suture. Sponge counts / sharp counts were appropriate.
Temporary pacing wire removal:
Under fluoro guidance the temporary pacing wire was successfully removed without any movement to the pacing leads.
Procedure End:
The procedure was tolerated well. Aquacel bandaged was applied.
Estimated Blood loss:
5 cc
Specimens Removed:
No cultures and no specimens were obtained. No intraoperative pathology was identified.
Urine output:
None
Packs / Drains/ Tubes:
None
Instrument / Sponge Count Correct:
Yes
Complications of the Procedure:
None
Condition of Patient at Time of Transfer:
Hemodynamically stable with no neurological or vascular compromise.
Device information:�
Generator: OmniVec; Model: W1DR01; Serial # [id number]�
Atrial Lead: [employer]; Model: 5076-45; Serial # [id number]
Measured data in the right atrium was sensing of 2.5 mV, impedance of 437 ohms and threshold of 0.5 V at 0.4ms�
LBB pacing lead: Medtronic; Model: 3830-69; Serial # [id number]
Measured data on the RV lead was sensing of 17 mV, impedance of 1045 ohms and threshold of 0.5V at 0.4ms
PROGRAMMING PARAMETERS:�
Jesus parameter settings were DDDR 60-130 �
����������� Paced AV interval: 180ms
����������� Sensed AV interval: 150 ms.
����������� Rate Adaptive A-V Interval: off
����������� Mode switch ON
�
Summary:
Successful implantation of MRI compatible LBB pacing dual chamber pacemaker.
Results/Recommendations:
-Please follow up CXR�
1. Please provide patient with adequate pain control�
Instructions to be given to patient:�
- Please follow up with [facility] at [address] [place] [address] ([phone]) to get your wound checked in 2 weeks of your discharge. Then follow with
- Do not wet incision site until after it is evaluated at cardiology clinic. No baths or showers until then. Sponge baths / showers are OK but dab dry the dressing after it is wet.�
- Allow 'steri strips' to fall off on their own�
- Do not lift left elbow above shoulder, particularly with sudden jerking movements, for 1 month�
- Do not lift anything weighing more than 5 pounds with the left arm for 1 month�
- If you notice any fevers, shortness of breath, lightheadedness, chest pain, or worsening swelling in the wound site, please contact the arrhythmia clinic, contact your selvage machine operator, or present to the hospital for evaluation.�
Tamera Kumari MD
Electrophysiology
[2025-05-18] MEDS: LOPRESSOR 50 MG PO (18:21)
--- NOTE | 2025-05-18 18:23 | PTCARENOTE ---
nicole catheter removed. pt assisted oob to chair without incident.
[2025-05-18] MEDS: ANCEF 5 IV (22:00)
--- NOTE | 2025-05-18 22:00 | PTCARENOTE ---
Patient received OOB in chair watching television. Patient A+A+Ox3. No neurological deficits noted. No c/o pain or discomfort. Room air. O2 2L HS.
SpO2 95%. V-Pacing. Heart rate 90's. Blood pressure 103/69 (81). Pacemaker site intact - Aquacell dressing intact - Left arm sling intact. Normoactive bowel sounds. No BM. No c/o nausea. No urge to void at this time. Right neck dressing
intact. Right groin dressing intact. Positive circulation, sensation and mobility to right lower extremity. Left upper extremity with positive circulation, sensation and mobility. Assessment as documented.
[2025-05-18] MEDS: ASPIR LOW (ENTERIC COATED) 81 MG PO (22:03)
[2025-05-18] MEDS: CRESTOR 5 MG PO (22:03)
[2025-05-19] VITALS (10 sets, daily range): BP systolic 108–142; BP diastolic 67–88; BMI 27.8
--- NOTE | 2025-05-19 01:00 | PTCARENOTE ---
Patient sleeping without difficulty. Patient with no void - Bladder scanned for 201 ml. Patient with no c/o bladder pain, discomfort or spasms. PA for CT Surgery made aware. No further changes from previous assessment.
[2025-05-19 04:53] LABS: Hematocrit 42.0 % (39.0-52.0); Hemoglobin 14.9 g/dL (13.0-18.0); Mean Corp Hgb Conc. 35.5 g/dL (33.0-37.0); Mean Corpuscular Volume 86.2 fL (80.0-94.0); Platelet Count 62 10^3/uL (130-400); Red Cell Dist. Width 13.9 % (11.5-14.5)
[2025-05-19 05:12] LABS: Blood Urea Nitrogen 18 mg/dl (9-20); Calcium 8.4 mg/dl (8.4-10.2); Carbon Dioxide 26 mmol/L (22-30); Chloride 105 mmol/L (98-107); Estimated Creatinine Clearance 61 ml/min; Glucose 130 mg/dl (70-99); Potassium 4.5 mmol/L (3.5-5.1); Sodium 135 mmol/L (135-145); eGFR > 60.00
[2025-05-19] MEDS: ANCEF 5 IV (05:13)
--- NOTE | 2025-05-19 05:30 | PTCARENOTE ---
Patient resting in bed. Patient A+A+Ox3. No neurological deficits noted. No c/o pain or discomfort. AM lab work collected and sent. EKG completed. Patient with no urge to void. Will bladder scan again. OOB to chair this AM.
Assessment/Interventions as documented.
--- NOTE | 2025-05-19 06:30 | PTCARENOTE ---
Patient with no urge to void. Bladder scan 330ml. Patient assisted OOB to chair. Standing scale weight 80.5 kg. Patient with no c/o pain or discomfort. Assessment/Interventions as documented.
--- NOTE | 2025-05-19 07:30 | PTCARENOTE ---
Assumed care of patient from supervisor kosher dietary service RN. AAO x 3. V paced on monitor. Room air 96% . Denies complaint at present, wants to go home. LT chest wall Dressing c,d,i. Rt Neck and rt groin dressings c,d,i. No edema appreciated. Pulses
palpable. Pt still has not voided post nicole removal last evening. Will bladder scan and follow.
[2025-05-19] MEDS: COZAAR 25 MG PO (08:29)
[2025-05-19] MEDS: LOPRESSOR 50 MG PO ×2 (08:29→20:23)
--- NOTE | 2025-05-19 08:45 | PTCARENOTE ---
Pt states he was able to void 'small amount' in toilet while having a bowel movement this am. Bladder scanned post for 396 ml. Pt does not wish to be straight cathed at present and is requesting more time. Will discuss with Primary. Encouraged
to ambulate this morning. Will rescan in 1 hour.
[2025-05-19] MEDS: FLOMAX 0.4 MG PO (09:04)
--- NOTE | 2025-05-19 09:41 | W.PN.ONC ---
Today's Communication / Plan
-
Platelet count stable, suspect thrombocytopenia is related to recent procedures
No bleeding or issues s/p PPM yesterday
Rec. monitor CBC while inpatient, and f/u w/ PCP (Dr Cr Luo, [facility]) after d/c
Will sign off
Impression
Impression
Thrombocytopenia
Severe Aortic Valve Stenosis s/o TAVR on 05/14/2025 now with episodes of complete Heart Block
Coronary Artery Disease with PCI
Essential Hypertension
Plan
Plan
Platelet count stable, suspect thrombocytopenia is related to recent procedures
No bleeding or issues s/p PPM yesterday
Rec. monitor CBC while inpatient, and f/u w/ PCP (Dr Cr Luo, [facility]) after d/c
Subjective/Objective
Subjective/Objective
No issues s/p PPM yesterday. No bleeding.
Struggling with urinary retention
Vital Signs:
Vital Signs
Temp Pulse Resp BP Pulse Ox
98.6 F 111 18 108/67 96
05/19/25 08:00 05/19/25 08:30 05/19/25 08:00 05/19/25 07:54 05/19/25 08:00
Lab Results:
Laboratory Data
WBC 12.2 10^3/uL (4.8-10.8) H 05/19/25 04:13
Hgb 14.9 g/dL (13.0-18.0) 05/19/25 04:13
Plt Count 62 10^3/uL (130-400) L 05/19/25 04:13
PT 13.9 Sec (11.4-14.6) 05/16/25 13:04
INR 1.04 05/16/25 13:04
APTT 27.5 Sec (23.4-35.0) 05/16/25 13:04
eGFR > 60.00 05/19/25 04:13
--- NOTE | 2025-05-19 10:07 | PTCARENOTE ---
Pt ambulating in room. Pt able to void 75 ml monty urine. Re scanned for 325 ml. Denies pressure with palpation. will continue to monitor.
--- NOTE | 2025-05-19 10:38 | W.PN.CD ---
Today's Communication / Plan
-
- PPM interrogation
- Discharge home.
Impression / Plan
-
I/P: 84-year-old male with severe AAS status post TAVR, CAD with PCI, hypertension, dyslipidemia, GERD who is here after development of intermittent episodes of complete heart block.
Tele with a few episodes of HB with TVP pacing
Complete heart block
- s/p PPM on 05/18/25
- TVP is removed.
- The IJ and femoral lines removed.
- Hoffman removed.
- Ambulate and likely discharge today
- EKG showed A sensed and V paced in RBBB and LAFB pattern indicating left posterior fascicle capture.
- Interrogate the PPM today before discharge.
CAD
- Continue aspirin / statin
Hypertension
- Continue losartan
- Resumed Metoprolol.
Thrombocytopenia
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
- puma today at 62
- no more heparin.
Dyslipidemia
- Continue statin
Physical Exam
Vital Signs/Labs
Vital Signs
Temp Pulse Resp BP Pulse Ox
98.6 F 111 18 108/67 96
05/19/25 08:00 05/19/25 08:30 05/19/25 08:00 05/19/25 07:54 05/19/25 09:35
05/18/25 05/19/25 05/20/25
06:59 06:59 06:59
Actual Weight 80.4 kg 80.5 kg
05/19/25 04:13
05/19/25 04:13
PT 13.9 Sec (11.4-14.6) 05/16/25 13:04
INR 1.04 05/16/25 13:04
APTT 27.5 Sec (23.4-35.0) 05/16/25 13:04
Magnesium 1.9 mg/dl (1.6-2.3) 05/17/25 04:55
TSH 4.73 uIU/ml (0.47-4.68) H 05/16/25 13:04
Free T4 1.64 ng/dl (0.78-2.19) 05/17/25 04:55
LAB Results
05/16/25
13:04
Troponin I 0.097 H*
Physical Exam
Constitutional: No acute distress and Comfortable
EENT: Anicteric and Moist mucous membranes
Cardiovascular: Rhythm & rate is regular, Pedal edema is absent and JVD pressure is normal
Respiratory: Respiratory effort normal, Lungs clear to auscul. and Wheeze Absent
GI: Soft, Non tender and Normal bowel sounds
Neuro/Psych: Alert, Oriented and AO x 3
Other: Cardiac Device Site
Data Reviewed
-
Date of Service: May 19, 2025
Medical Decision Making: Reviewed Test Results, Test Interpretation and Review of Case with other Provider
EKG: Tracing Personally Visualized and interpreted
X-Ray/CT/US/MRI/NUC/PET: Image Personally Visualized and interpreted
Labs: Labs Reviewed by me
Old Records: Reviewed
--- NOTE | 2025-05-19 12:40 | PTCARENOTE ---
MD notified that patient continues to not be able / no urge to void. VSS. Anxious. Will monitor.
--- NOTE | 2025-05-19 13:08 | PTCARENOTE ---
PT able to void 250 ml monty urine, PVR 595.. Pt encouraged to try again, able to void additional 100ml. Discussed straight cathing with patient and he became very upset, and tearful. Does not wish to have a catheter of any sort. Wishes to see
urology before any further interventions preformed. This relayed to MD. Will follow. Emotional support provided.
--- NOTE | 2025-05-19 13:46 | CONS.URO ---
Consultation
-
Date/Time Consultation Performed: 05/19/2025 1545
Performing Provider: Papo
Reason for Consultation: urinary retention
Medical History
History of Present Illness
Admission note: '84-year-old male with history of severe aortic valve stenosis status post TAVR on May 14 and basically was discharged from the hospital yesterday also history of hypertension, dyslipidemia and GERD, he was discharged home with
a monitor yesterday and around 530 this morning received a phone call from his strap folding machine operator that his telemetry showed he has recurrent pauses therefore he needed to come back to the hospital.'
per RN, 'nicole was removed last night at 1800 . . . Able to void 150 ml at a time and is retaining . . . Pt magnolia does not want another floey.'
no antecedent history with [facility] -- 'Dr Anne is my urologist'
at 1245 today - amount voided 250 ml; amount scanned 595 ml
Bethanechol --> numerous voids
Past Medical History
Past Medical History: Other (Hypertension, GERD, Dyslipidemia, Coronary artery disease, Severe aortic stenosis status post TAVR May 14, 2025, Chronic right bundle branch block)
Past Surgical History: Other (TAVR, Skin cancer removal, Cataract surgery, Inguinal hernia repair on the right side, Cardiac cath, Right hip replacement)
Allergies/Home Medications
Allergies
Allergy/AdvReac Type Severity Reaction Status Date / Time
pollen extracts Allergy hay Verified 05/16/25 12:28
fever/seasonal
Home Medications
�Medication �Instructions �Recorded �Confirmed �Type
aspirin 81 mg tablet,delayed 81 mg PO HS Blood Clot 04/29/25 05/16/25 History
release Prevention/Tx
icosapent ethyl 1 gram capsule 1 g PO BID High Cholesterol 04/29/25 05/16/25 History
losartan 25 mg tablet 25 mg PO DAILY Blood Pressure 04/29/25 05/16/25 History
metoprolol tartrate 50 mg tablet 50 mg PO BID Blood Pressure 04/29/25 05/16/25 History
multivitamin 1 tab PO DAILY Supplement 04/29/25 05/16/25 History
pantoprazole 40 mg tablet,delayed 40 mg PO QPM Gastrointestinal Issue 04/29/25 05/16/25 History
release
rosuvastatin 5 mg tablet 5 mg PO HS High Cholesterol 04/29/25 05/16/25 History
Physical Exam
Vital Signs
Vital Signs
Temp Pulse Resp BP Pulse Ox
98.6 F 84 20 142/85 96
05/19/25 12:37 05/19/25 12:37 05/19/25 12:37 05/19/25 11:45 05/19/25 12:37
Lab / Testing Results
Laboratory Results
05/19/25 04:13
05/19/25 04:13
Physical Exam
adult male on bedside lounger
General: No Apparent Distress
HEENT: Normocephalic
GI: Soft, Non Tender and Non Distended
Skin: Warm
Neuro: Awake and Alert
Psych: Calm
Assessment / Plan
-
subtotal urinary retention
Rec:
discharge on Tamsulosin and Bethanechol
pt agrees to perform CIC prn
to f/u kristopher Anne, his urologist
Data Reviewed
-
Old Records: Reviewed
[2025-05-19] MEDS: URECHOLINE 50 MG PO (13:56)
--- NOTE | 2025-05-19 15:20 | PN.CDI ---
CDI
- -
CDI:
Physician Documentation Request
Admit Date: 05/16/25 13:24
Dear Cardiology,
Please review the following and provide your response in the progress notes.
Clinical Indicators:
- Patient admit for complete heart block
- per H&P 'Elevated troponin: Likely secondary to TAVR yesterday'
- 'follow the trend'
Laboratory Tests
05/16/25
13:04
Troponin I 0.097 H*
Please clarify the following regarding the documented elevated troponin:
Non-ischemic myocardial injury
Abnormal lab value only
Other (please specify)
Use of terms such as suspected, likely, concern for, or probable (associated with a specific diagnosis that is being evaluated, monitored, or treated as if it exists) are acceptable and can be coded in the inpatient setting, when documented at the
time of discharge.
Thank you,
Montserrat Alvarez RN
CDI Specialist
Please use your independent medical judgment in providing your response.
--- NOTE | 2025-05-19 17:11 | PTCARENOTE ---
Pt seen by Urologist. Plan made . RN in to speak with patient about self catheterization technique and to have pt preform a demonstration. Pt however, very hesitant to preform self catheterization, 'I dont want to inflict any additional trauma to
my penis'. Pt informed he could not leave without being able to preform self cath and show understanding. Pt and also inquiring about picking up medications this late in the evening as his pharmacy has recently closed. After long discussion
with patient and pt requesting to stay tonight so he can rock picker his medications on the way home.
[2025-05-19] MEDS: PROTONIX 40 MG PO (18:04)
[2025-05-19] MEDS: CRESTOR 5 MG PO (22:09)
[2025-05-19] MEDS: ASPIR LOW (ENTERIC COATED) 81 MG PO (22:09)
[2025-05-20 02:12] VITALS: BP 120/93
--- NOTE | 2025-05-20 02:36 | PTCARENOTE ---
Pt. V-paced on the monitor, vitals stable. Urinating frequently; 50 ml at a time approx. every 30 minutes.. Bladder scanned post void with results of 591 ml. Pt. agreeable to being straight cath'd. Components of cath kit shown to patient and
technique explained while catheterizing; understanding verbalized. Pt. hopeful for discharge later today but anxious about urinary status. Reassurance given, states he feels a little better having procedure explained to him. Currently resting
quietly.
--- NOTE | 2025-05-20 03:03 | DOWNTIME ---
There was a [employer] Client Nurse Clinician Downtime on 05/20/2025 from 0100 to 05/20/2025 at 0215. Downtime documentation of patient's care, including medication administrations, has been reconciled in the electronic record per guidelines. Refer to the
patient's paper chart under the miscellaneous tab to see printed paper medication records and downtime forms.
[2025-05-20 05:59] LABS: Blood Urea Nitrogen 20 mg/dl (9-20); Calcium 8.4 mg/dl (8.4-10.2); Carbon Dioxide 28 mmol/L (22-30); Chloride 104 mmol/L (98-107); Estimated Creatinine Clearance 62 ml/min; Glucose 106 mg/dl (70-99); Potassium 4.2 mmol/L (3.5-5.1); Sodium 137 mmol/L (135-145); eGFR > 60.00
[2025-05-20 07:42] VITALS: BP 128/79
--- NOTE | 2025-05-20 08:04 | W.PN.CD ---
Today's Communication / Plan
-
- Discharge home today
Impression / Plan
-
I/P: 84-year-old male with severe AAS status post TAVR, CAD with PCI, hypertension, dyslipidemia, GERD who is here after development of intermittent episodes of complete heart block.
Urinary retention
- Hoffman removed - developed urinary retention and Urology consulted.
- CIC prn
- Tamsulosin and Bethanechol
- OK to discharge
- Follow up with urology
Complete heart block
- s/p PPM on 05/18/25
- PPM interrogated - working well and normal.
- The IJ and femoral lines removed.
- Ambulate and likely discharge today
- EKG showed A sensed and V paced in RBBB and LAFB pattern indicating left posterior fascicle capture.
CAD
- Continue aspirin / statin
- Troponin leak in setting of recent instrumentation and TAVR - Non ND, non ischemic troponin leak.
Hypertension
- Continue losartan
- Resumed Metoprolol.
Thrombocytopenia
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
- puma 62 - pending today
- Stable for the past 4 days now.
- hematology evaluated and signed off.
- no more heparin.
Dyslipidemia
- Continue statin
Physical Exam
Vital Signs/Labs
Vital Signs
Temp Pulse Resp BP Pulse Ox
97.9 F 74 20 128/79 93
05/20/25 07:43 05/20/25 07:42 05/20/25 07:43 05/20/25 07:42 05/20/25 07:43
05/19/25 05/20/25 05/21/25
06:59 06:59 06:59
Actual Weight 80.5 kg
05/19/25 04:13
05/20/25 05:16
PT 13.9 Sec (11.4-14.6) 05/16/25 13:04
INR 1.04 05/16/25 13:04
APTT 27.5 Sec (23.4-35.0) 05/16/25 13:04
Magnesium 1.9 mg/dl (1.6-2.3) 05/17/25 04:55
TSH 4.73 uIU/ml (0.47-4.68) H 05/16/25 13:04
Free T4 1.64 ng/dl (0.78-2.19) 05/17/25 04:55
Physical Exam
Constitutional: No acute distress and Comfortable
EENT: Anicteric and Moist mucous membranes
Cardiovascular: Rhythm & rate is regular, Pedal edema is absent and JVD pressure is normal
Respiratory: Respiratory effort normal, Lungs clear to auscul. and Wheeze Absent
GI: Soft, Non tender and Normal bowel sounds
Neuro/Psych: Alert, Oriented, AO x 3 and Motor deficits absent
Other: Cath Site and Cardiac Device Site
Data Reviewed
-
Date of Service: May 20, 2025
Medical Decision Making: Reviewed Test Results, Test Interpretation and Review of Case with other Provider
EKG: Tracing Personally Visualized and interpreted
Echo: Report Reviewed by me
X-Ray/CT/US/MRI/NUC/PET: Image Personally Visualized and interpreted
Labs: Labs Reviewed by me
Old Records: Reviewed
--- NOTE | 2025-05-20 08:09 | W.CARD.DEVCH ---
Cardiac Device Check
-
Device: Pacemaker
Drier Tender Naphthalene: Medtronic
The patient's device was interrogated with assistance of the device employee representative followed by a complete physician review. The device had normal function. No abnormalities seen.
[2025-05-20] MEDS: FLOMAX 0.4 MG PO (08:36)
[2025-05-20] MEDS: COZAAR 25 MG PO (08:36)
[2025-05-20] MEDS: LOPRESSOR 50 MG PO (08:36)
--- NOTE | 2025-05-20 10:15 | CM ---
Addendum entered by Chandni Novak 05/20/25 10:15:
Mr. Fishman was transferred to IVU.
Original Note:
Reviewed chart. Met with Mr. Fishman to review discharge plans. He states he feels well and maybe able to go home soon. He states prior to admission he resides with his spouse in a two story home with seven steps to enter. He states he has a full
flight of steps to get to bedroom/full bathroom. He states he has a powder room in the basement. He states prior to admission he was independent with ambulation and adls. He states he does not have ant DME in the home. He states he has a
prescription plan with [facility]. He states his spouse will be home to assist in his care if needed. We reviewed [facility] since he is out of the catchment area for the Transitional Care Nurse. He is agreeable to [facility].
Telephone call to [facility] to make the referral. Sent referral. Medical work-up in progress. The discharge plan is to return home with his spouse and [facility] when medically stable.
[2025-05-20 11:30] VITALS: BP 95/62
--- NOTE | 2025-05-20 14:26 | PTCARENOTE ---
Pt/ instructed on self-catheterization. Performed self-cath with success. Provided written instructions, all questions answered. Provided 3 cath kits to take home on discharge. Pt/ feel confident with process.
--- NOTE | 2025-05-20 14:40 | W.DS.TRANS ---
DC Summary - Clinical Care Coordinator
-
Discharge Instructions:
Discharge Diagnosis/Procedures Complete heart block
Procedure: Transvenous pacemaker 05/16/2025
Procedure: Permanent pacemaker implantation 05/18
Urinary retention
Thrombocytopenia
Diet 2 Gram Sodium,Low Cholesterol,Low Fat
Activity No strenuous activity
Additional Activity See attached instructions
Driving Restrictions No driving for 1 week
Bathing Restrictions OK to Shower
Others Tests echo 06/16/2025 as previously planned (see
previous d/c instructions for details)
Other Services VN
Specialty Instructions Weigh Daily
Instructions:
Stand-Alone Forms: DC Inst - Implanted Device
Changes to Home Medications: Yes
Discharge Medications:
DC Medications w/original date entered in [employer]
aspirin 81 mg tablet,delayed release 81 mg PO HS Blood Clot Prevention/Tx 04/29/25
icosapent ethyl 1 gram capsule 1 g PO BID High Cholesterol 04/29/25
losartan 25 mg tablet 25 mg PO DAILY Blood Pressure 04/29/25
metoprolol tartrate 50 mg tablet 50 mg PO BID Blood Pressure 04/29/25
multivitamin 1 tab PO DAILY Supplement 04/29/25
pantoprazole 40 mg tablet,delayed release 40 mg PO QPM Gastrointestinal Issue 04/29/25
rosuvastatin 5 mg tablet 5 mg PO HS High Cholesterol 04/29/25
bethanechol chloride 25 mg tablet 25 mg PO TID #6 tabs 05/19/25
tamsulosin 0.4 mg capsule 0.4 mg PO DAILY #30 caps 05/19/25
Home Medication Changes
bethanechol chloride and tamsulosin new
Pending Results: No
[2025-05-20 15:12] VITALS: BP 98/61
== END 2025-05-20 16:19 | disposition home health service (06) | DRG 243 ==
LOC: IVU 13:24
PROVIDERS: Internal Medicine Cardiovascular Disease; Internal Medicine Interventional Cardiology; Nurse Practitioner; Nurse Practitioner Family; Physician Assistant; ADMITTING PHYSICIAN Internal Medicine; ATTENDING PHYSICIAN Internal Medicine Cardiovascular Disease; CONSULT PHYSICIAN Specialist; EMERGENCY PHYSICIAN Emergency Medicine; FAMILY PHYSICIAN Internal Medicine; OTHER PHYSICIAN Internal Medicine Hematology & Oncology
PROC: 5A1223Z Performance of Cardiac Pacing, Continuous (ICD-10-PCS; 2025-05-16)
PROC: 02H63JZ Insertion of Pacemaker Lead into Right Atrium, Percutaneous Approach (ICD-10-PCS; 2025-05-18)
PROC: 0JH606Z Insertion of Pacemaker, Dual Chamber into Chest Subcutaneous Tissue and Fascia, Open Approach (ICD-10-PCS; 2025-05-18)
PROC: 02HK3JZ Insertion of Pacemaker Lead into Right Ventricle, Percutaneous Approach (ICD-10-PCS; 2025-05-18)
PROC: 4B02XSZ Measurement of Cardiac Pacemaker, External Approach (ICD-10-PCS; 2025-05-20)
DX: I44.2 Atrioventricular block, complete (principal); I5A Non-ischemic myocardial injury (non-traumatic); Z95.2 Presence of prosthetic heart valve; I10 Essential (primary) hypertension; K21.9 Gastro-esophageal reflux disease without esophagitis; R33.9 Retention of urine, unspecified; I25.10 Atherosclerotic heart disease of native coronary artery without angina pectoris; D69.59 Other secondary thrombocytopenia; Z87.891 Personal history of nicotine dependence; Z79.899 Other long term (current) drug therapy; E78.00 Pure hypercholesterolemia, unspecified; Z96.641 Presence of right artificial hip joint
CPT/HCPCS: 33208; 33210; 71045; 80048; 80053; 83735; 84439; 84443; 84484; 85025; 85027; 85610; 85730; 93005; 94640; 99285; C1769; C1785; C1898